=== PATIENT | female | born 1940 | race Caucasian/White ===

== ENCOUNTER 2017-01-09 19:31 | Inpatient (IN) | payer OTHER ==
[~2017-01-09] VITALS: Ht 165.1 cm; Wt 93.4 kg
[~2017-01-09 19:31] MED LIST: ASPI81TA21 PO; CARV3.122 PO; CITA20TA9 PO; FURO20TA PO; HYZ/50125 PO; LPT/20 PO; MELO15TA4 PO; ULT50X PO
[2017-01-09] MEDS ORDERED: ONDANSETRON INJ 2 MG/ML 2 ML VIAL IV STA (19:43)
[2017-01-09] MEDS ORDERED: SODIUM CHLORIDE 0.9% 1000ML 1,000 ML IV STA (19:43)
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
[2017-01-09] MEDS ORDERED: CHOL100010 PO (19:50)
[2017-01-09] MEDS ORDERED: PANT40TA PO (19:50)
[2017-01-09] MEDS ORDERED: LOSA1TAB PO (19:50)
[2017-01-09 19:55] LABS: BASO % 0.7 %; BASO ABS # 0.05 K/uL (0-0.2); COMPLETE YES; EOS % 3.1 %; HEMATOCRIT 37.7 % (37-47); IG% 0.3 %; LYMPH ABS # 3.13 K/uL (1.2-3.4); MEAN CELL VOLUME 83.2 fL (80-100); MEAN CORPUSCULAR HEMOGLOBIN 25.2 pg (25-34); MEAN CORPUSCULAR HGB CONC 30.2 g/dl (32-36); MEAN PLATELET VOLUME 9.4 fL (7.4-10.4); MONO % 10.4 %; NEUT % 44.5 %; PLATELET COUNT 296 K/uL (130-400); RED BLOOD COUNT 4.53 M/uL (4.2-5.4); WHITE BLOOD COUNT 7.63 K/uL (4.8-10.8)
[2017-01-09] MEDS ORDERED: OPTIRAY 320 IV PRN (20:00)
[2017-01-09 20:11] LABS: ISTAT CREATININE 1.1 mg/dl (0.6-1.3); ISTAT HEMOGLOBIN 10.2 g/dl (12.0-16.0)
[2017-01-09 20:14] LABS: ALT/SGPT 31 U/L (12-78); AST/SGOT 31 U/L (15-37); BLOOD UREA NITROGEN 18 mg/dl (7-18); BUN/CREATININE RATIO 14.7 (10-20); CARBON DIOXIDE 29 mmol/L (21-32); CHLORIDE 106 mmol/L (98-107); GLUCOSE 113 mg/dl (70-99); MAGNESIUM 2.2 mg/dl (1.8-2.4); POTASSIUM 4.7 mmol/L (3.5-5.1); SODIUM 141 mmol/L (136-145)
[2017-01-09 20:17] LABS: ALKALINE PHOSPHATASE 71 U/L (45-117)
--- NOTE | 2017-01-09 20:24 | DIAGNOSTIC IMAGING REPORT ---
CHEST ONE VIEW PORTABLE CLINICAL HISTORY: ABDOMINAL PAIN/GI pain COMPARISON STUDY: 03/02/2016 FINDINGS: Mild cardia megaly. Chronic interstitial change left base. Lungs appear clear. IMPRESSION: Moderate cardiomegaly. Otherwise negative study Electronically signed by: Rajinder Aguero M.D. 01/09/2017 8:22 PM Dictated Date/Time: 01/09/2017 8:22 PM
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
[2017-01-09 21:18] LABS: PROTHROMBIN TIME (PATIENT) 11.2 SECONDS (9.0-12.0)
[2017-01-09] MEDS ORDERED: NITROGLYCERIN 0.4 MG SL PER TAB CHARGE SL PRN (23:00)
[2017-01-09] MEDS ORDERED: ONDANSETRON INJ 2 MG/ML 2 ML VIAL IV PRN (23:00)
[2017-01-09] MEDS ORDERED: ALUMINUM/MAGNESIUM/SIMETH (MAALOX MAX) 30 ML UDC PO PRN (23:00)
[2017-01-09] MEDS ORDERED: ACETAMINOPHEN 325 MG TAB PO PRN (23:00)
[2017-01-09] MEDS ORDERED: MAGNESIUM HYDROXIDE SUSP 30 ML UDC PO PRN (23:00)
[2017-01-09] MEDS ORDERED: FUROSEMIDE 20 MG TAB PO PRN (23:00)
[2017-01-09 23:58] VITALS: O2SAT 92
[2017-01-10] VITALS (8 sets, daily range): BP systolic 96–157; BP diastolic 57–79; PULSE 64–86; TEMP 36.3–36.8; O2SAT 90–96; Ht 165.1 cm; Wt 93.4 kg
[2017-01-10 00:42] LABS: ARTERIAL BLD GAS O2 SATURATION 91.1 % (90-95); ARTERIAL BLOOD GAS BASE EXCESS -0.5 mEq/L (-9-1.8); ARTERIAL BLOOD GAS HCO3 25 mmol/L (19-24); ARTERIAL BLOOD GAS PO2 69 mm/Hg (80-95); ARTERIAL BLOOD GAS pH 7.37 (7.35-7.45)
[2017-01-10 00:43] LABS: ALLEN TEST POS (POS); O2 ADMINISTRATION ROOM AIR
[2017-01-10] MEDS ORDERED: IV FLUIDS COMPLETED PRN (00:45)
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
[2017-01-10 07:31] LABS: BASO % 0.6 %; BASO ABS # 0.04 K/uL (0-0.2); COMPLETE YES; EOS % 2.6 %; IG% 0.3 %; LYMPH % 36.2 %; LYMPH ABS # 2.53 K/uL (1.2-3.4); MEAN CELL VOLUME 83.3 fL (80-100); MEAN CORPUSCULAR HEMOGLOBIN 25.5 pg (25-34); MEAN CORPUSCULAR HGB CONC 30.6 g/dl (32-36); MEAN PLATELET VOLUME 8.9 fL (7.4-10.4); MONO % 9.3 %; PLATELET COUNT 237 K/uL (130-400); RED BLOOD COUNT 3.84 M/uL (4.2-5.4); WHITE BLOOD COUNT 6.98 K/uL (4.8-10.8)
[2017-01-10 08:00] LABS: BLOOD UREA NITROGEN 20 mg/dl (7-18); BUN/CREATININE RATIO 18.3 (10-20); CARBON DIOXIDE 28 mmol/L (21-32); CHLORIDE 107 mmol/L (98-107); CHOLESTEROL 132 mg/dl (0-200); GLUCOSE 86 mg/dl (70-99); MAGNESIUM 2.3 mg/dl (1.8-2.4); POTASSIUM 4.5 mmol/L (3.5-5.1); SODIUM 142 mmol/L (136-145)
[2017-01-10 08:04] LABS: CHOLESTEROL/HDL RATIO 4.6; CKMB/CK RATIO 1.6 (0-3.0); HDL CHOLESTEROL 29 mg/dl; LDL CHOLESTEROL CALCULATED 86 mg/dl; TRIGLYCERIDES 84 mg/dl (0-150); VERY LOW DENSITY LIPOPROT CALC 17 mg/dl
[2017-01-10 08:31] LABS: CALCIUM 8.3 mg/dl (8.5-10.1)
[2017-01-10] MEDS: PANTOprazole SOD 40 MG TAB PO SCH (08:46)
[2017-01-10] MEDS: CITALOPRAM 20 MG TAB PO SCH (08:47)
[2017-01-10] MEDS: LOSARTAN POTASSIUM 25 MG TAB PO SCH (08:47)
[2017-01-10] MEDS: MELOXICAM 7.5 MG TAB PO SCH (08:47)
[2017-01-10] MEDS: CARVEDILOL 3.125 MG TAB PO SCH ×2 (08:49→20:50)
[2017-01-10] MEDS: ASPIRIN 81 MG ECTAB PO SCH (08:49)
[2017-01-10] MEDS: CHOLECALCIFEROL 1000 INTER.UNIT TAB PO SCH (08:50)
[2017-01-10] MEDS: ATORVASTATIN 20 MG TAB PO SCH (08:50)
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
--- NOTE | 2017-01-10 12:43 | Progress Note ---
Internal Med Progress Note Date of Service: January 10, 2017. Provider Documentation: SUBJECTIVE: Patient is seen and examined at bedside. States feeling well. Denies chest pain , SOB, dizziness, nausea, abd pain, palpitations. Family at bedside. Admits to skipping meals on occasions. Offers no other complaints. OBJECTIVE: Vital Signs-as noted below Physical Exam: General Appearance:Moderately built and nourished, no apparent distress Head: normocephalic, Atraumatic Eyes: normal inspection, EOMI, PERRL Neck: supple, Trachea midline Respiratory/Chest: Normal breath sounds, CTA Cardiovascular: S1, S2, No murmur Abdomen/GI:Soft, Non tender, Bowel sounds present Extremities/Musculoskelatal:normal inspection, 1+ B/L edema Neurologic/Psych:AAOX3, grossly no focal neurological deficits Skin: normal color, warm Lab data as noted below. ASSESSMENT & PLAN: Syncope: H/O multiple episodes in last 2 yrs Likely situational/Vasovagal in origin Admits to skipping meals but doesn't think it is related EKG/Cardiac enzymes:wnl ECHO: read pending CT head:No acute intracranial abnormality Carotid duplex: No significant change Cardiology consulted No seizure like activity Encouraged to avoid slipping meals, wear ENRICO hose and avoid sudden change in position. Hypoxia: Unclear etiology CT chest: unremarkable. Get Nocturnal pulse oximetry May need PFT's as out patient Hypertension: Continue Coreg, losartan. Hyperlipidemia: Continue statin H/O Diastolic CHF: No signs of decompensation Lasix as needed, Coreg and Cozaar. ECHO:pending Depression: continue Celexa. DVT Px: SCDs Disposition: monitor on tele floor. Code Status: Full code. Vital Signs: Date Time Temp Pulse Resp B/P Pulse Ox O2 Delivery O2 Flow Rate FiO2 01/10/17 11:20 36.6 86 18 103/59 92 Room Air 01/10/17 10:15 Room Air 01/10/17 07:49 36.5 69 16 107/62 91 Room Air 01/10/17 05:42 36.4 69 16 131/70 Room Air 01/10/17 04:00 36.4 69 16 131/70 91 01/10/17 03:05 36.3 69 20 124/79 92 Room Air 01/10/17 00:24 36.7 77 18 157/70 96 Room Air 01/09/17 23:58 74 20 132/68 92 01/09/17 22:36 78 21 94 Room Air 01/09/17 22:30 136/69 01/09/17 22:06 73 15 89 Room Air 01/09/17 22:00 136/78 01/09/17 21:36 75 20 94 Room Air 01/09/17 21:31 131/78 01/09/17 21:06 71 19 91 01/09/17 21:01 75 20 79 01/09/17 21:01 132/69 01/09/17 21:00 125/80 01/09/17 21:00 125/80 01/09/17 20:58 71 124/68 92 Room Air 82 125/80 75 132/69 01/09/17 20:57 124/68 01/09/17 20:57 124/68 01/09/17 20:06 66 19 01/09/17 20:01 65 21 01/09/17 20:01 65 21 01/09/17 19:45 36.7 80 20 121/59 98 Room Air 01/09/17 19:45 69 01/09/17 19:36 121/59 01/09/17 19:36 121/59 Lab Results: Results Past 24 Hours Test 01/09/17 18:45 01/09/17 19:40 01/09/17 19:56 01/09/17 20:50 Range/Units White Blood Count 7.63 4.8-10.8 K/uL Red Blood Count 4.53 4.2-5.4 M/uL Hemoglobin 11.4 12.0-16.0 g/dL Hematocrit 37.7 37-47 % Mean Corpuscular Volume 83.2 80-100 fL Mean Corpuscular Hemoglobin 25.2 25-34 pg Mean Corpuscular Hemoglobin Concent 30.2 32-36 g/dl Platelet Count 296 130-400 K/uL Mean Platelet Volume 9.4 7.4-10.4 fL Neutrophils (%) (Auto) 44.5 % Lymphocytes (%) (Auto) 41.0 % Monocytes (%) (Auto) 10.4 % Eosinophils (%) (Auto) 3.1 % Basophils (%) (Auto) 0.7 % Neutrophils # (Auto) 3.40 1.4-6.5 K/uL Lymphocytes # (Auto) 3.13 1.2-3.4 K/uL Monocytes # (Auto) 0.79 0.11-0.59 K/uL Eosinophils # (Auto) 0.24 0-0.5 K/uL Basophils # (Auto) 0.05 0-0.2 K/uL RDW Standard Deviation 44.3 36.4-46.3 fL RDW Coefficient of Variation 14.6 11.5-14.5 % Immature Granulocyte % (Auto) 0.3 % Immature Granulocyte # (Auto) 0.02 0.00-0.02 K/uL Sodium Level 141 136-145 mmol/L Potassium Level 4.7 3.5-5.1 mmol/L Chloride Level 106 98-107 mmol/L Carbon Dioxide Level 29 21-32 mmol/L Anion Gap 6.0 20.0 16-25 mmol/L Blood Urea Nitrogen 18 7-18 mg/dl Creatinine 1.20 0.60-1.20 mg/dl Est Creatinine Clear Calc Drug Dose 44.5 ml/min Estimated GFR () 50.5 Estimated GFR (Non- 43.6 BUN/Creatinine Ratio 14.7 10-20 Random Glucose 113 70-99 mg/dl Calcium Level 9.0 8.5-10.1 mg/dl Magnesium Level 2.2 1.8-2.4 mg/dl Total Bilirubin 0.3 0.2-1 mg/dl Direct Bilirubin < 0.1 0-0.2 mg/dl Aspartate Amino Transf (AST/SGOT) 31 15-37 U/L Alanine Aminotransferase (ALT/SGPT) 31 12-78 U/L Alkaline Phosphatase 71 45-117 U/L Total Creatine Kinase 41 26-192 U/L Creatine Kinase MB < 0.5 0.5-3.6 ng/ml Creatine Kinase MB Ratio 0-3.0 Troponin I < 0.015 0-0.045 ng/ml Total Protein 7.7 6.4-8.2 gm/dl Albumin 3.6 3.4-5.0 gm/dl Lipase 373 73-393 U/L Bedside Glucose 111 70-90 mg/dl Bedside Hemoglobin 10.2 12.0-16.0 g/dl Bedside Hematocrit 30 37-47 % Bedside Sodium 142 135-144 mEq/L Bedside Potassium 4.5 3.3-5.0 mEq/L Bedside Chloride 107 101-112 mEq/L Bedside Total CO2 21 24-31 mEq/l Bedside Blood Urea Nitrogen 16 7-18 mg/dl Bedside Creatinine 1.1 0.6-1.3 mg/dl Bedside Glucose (other) 118 70-99 mg/dl Bedside Lactic Acid Venous 1.38 0.90-1.70 mmol/L Bedside Ionized Calcium (Pepper) 1.00 1.12-1.32 mmol/l Prothrombin Time 11.2 9.0-12.0 SECONDS Prothromb Time International Ratio 1.0 0.9-1.1 Activated Partial Thromboplast Time 26.0 21.0-31.0 SECONDS Partial Thromboplastin Ratio 1.0 Test 01/10/17 00:34 01/10/17 06:35 01/10/17 06:55 Range/Units Arterial Blood pH 7.37 7.35-7.45 Arterial Blood Partial Pressure CO2 44 35-46 mmHg Arterial Blood Partial Pressure O2 69 80-95 mm/Hg Arterial Blood HCO3 25 19-24 mmol/L Arterial Blood Oxygen Saturation 91.1 90-95 % Arterial Blood Base Excess -0.5 -9-1.8 mEq/L Arterial Blood Gas Delivery ROOM AIR Riki Test POS POS Sodium Level 142 136-145 mmol/L Potassium Level 4.5 3.5-5.1 mmol/L Chloride Level 107 98-107 mmol/L Carbon Dioxide Level 28 21-32 mmol/L Anion Gap 7.0 3-11 mmol/L Blood Urea Nitrogen 20 7-18 mg/dl Creatinine 1.10 0.60-1.20 mg/dl Est Creatinine Clear Calc Drug Dose 48.5 ml/min Estimated GFR () 56.1 Estimated GFR (Non- 48.4 BUN/Creatinine Ratio 18.3 10-20 Random Glucose 86 70-99 mg/dl Calcium Level 8.3 8.5-10.1 mg/dl Magnesium Level 2.3 1.8-2.4 mg/dl Total Creatine Kinase 37 26-192 U/L Creatine Kinase MB 0.6 0.5-3.6 ng/ml Creatine Kinase MB Ratio 1.6 0-3.0 Troponin I < 0.015 0-0.045 ng/ml Triglycerides Level 84 0-150 mg/dl Cholesterol Level 132 0-200 mg/dl HDL Cholesterol 29 mg/dl LDL Cholesterol, Calculated 86 mg/dl VLDL Cholesterol, Calculated 17 mg/dl Cholesterol/HDL Ratio 4.6 White Blood Count 6.98 4.8-10.8 K/uL Red Blood Count 3.84 4.2-5.4 M/uL Hemoglobin 9.8 12.0-16.0 g/dL Hematocrit 32.0 37-47 % Mean Corpuscular Volume 83.3 80-100 fL Mean Corpuscular Hemoglobin 25.5 25-34 pg Mean Corpuscular Hemoglobin Concent 30.6 32-36 g/dl Platelet Count 237 130-400 K/uL Mean Platelet Volume 8.9 7.4-10.4 fL Neutrophils (%) (Auto) 51.0 % Lymphocytes (%) (Auto) 36.2 % Monocytes (%) (Auto) 9.3 % Eosinophils (%) (Auto) 2.6 % Basophils (%) (Auto) 0.6 % Neutrophils # (Auto) 3.56 1.4-6.5 K/uL Lymphocytes # (Auto) 2.53 1.2-3.4 K/uL Monocytes # (Auto) 0.65 0.11-0.59 K/uL Eosinophils # (Auto) 0.18 0-0.5 K/uL Basophils # (Auto) 0.04 0-0.2 K/uL RDW Standard Deviation 44.4 36.4-46.3 fL RDW Coefficient of Variation 14.5 11.5-14.5 % Immature Granulocyte % (Auto) 0.3 % Immature Granulocyte # (Auto) 0.02 0.00-0.02 K/uL Microbiology Results 01/09/17 Blood Culture, Received Pending 01/09/17 Blood Culture, Received Pending
--- NOTE | 2017-01-10 13:29 | ECHOCARDIOGRAM REPORT ---
*NOTICE TO RECEIVING CONSTITUTION PARTY AGENCY This information is strictly Confidential and protected under [place] law. [place] law prohibits you from making any further disclosure of this information unless further disclosure is expressly permitted by the written consent of the person to whom it pertains or is authorized by law. A general authorization for the release of medical or other information is not sufficient for this purpose. Hospital accepts no responsibility if the information is made available to any other person, INCLUDING THE PATIENT. Interpretation Summary * Name: JESSENIA LEON Study Date: 01/10/2017 07:02 AM BP: 131/70 mmHg * Patient Location: [facility] HR: 69 * : 1940 (M/d/yyyy) Gender: Female Height: 65 in * Age: 76 yrs Ethnicity: [place] Weight: 206 lb * Ordering Physician: Sebas Fairchild * Referring Physician: Self, Referred * Performed By: Delvin Arce RCS * * Reason For Study: Syncope * BSA: 2.0 m2 * The study was technically difficult. * Compared to prior study, changes are noted. * -- Conclusions -- * Ejection Fraction = 65-70%. * There is mild concentric left ventricular hypertrophy. * The left ventricular wall motion is normal. * There is mild tricuspid regurgitation. * The estimated systolic PAP is 36mmhg. * Grade I diastolic dysfunction, (abnormal relaxation pattern). Procedure Details * A complete two-dimensional transthoracic echocardiogram was performed (2D, M-mode, Doppler and color flow Doppler). * A contrast injection of Definity was performed to improve assessment of LV function. * Contrast was injected into an intravenous site in the right arm. * One vial of Definity ultrasound contrast was diluted in normal saline to a total volume of 10 ml. A total of '2' ml of solution was administered during imaging. * Lot # [id number] of Definity utilized for procedure. * Expiration date 1APR18. * The attending nurse who injected the contrast agent was Jennifer Lopez RN. Left Ventricle * The left ventricle is normal in size. * There is no thrombus. * There is mild concentric left ventricular hypertrophy. * Left ventricular systolic function is normal. * Ejection Fraction = 65-70%. * The left ventricular wall motion is normal. Right Ventricle * The right ventricular cavity size is normal (basal dimension <4.2 cm in right ventricular apical 4-chamber view). * The right ventricular systolic function is normal as assessed by tricuspid annular plane systolic excursion (TAPSE) (normal >1.5 cm). Atria * The left atrial size is normal. * Right atrial size is normal. * There is no evidence of atrial septal defect, but resolution does not allow assessment for a patent foramen ovale. Mitral Valve * The mitral valve is normal. * There is no mitral valve stenosis. * Significant mitral regurgitation is absent. Tricuspid Valve * The tricuspid valve is normal. * There is no tricuspid stenosis. * There is mild tricuspid regurgitation. * The estimated systolic PAP is 36mmhg. Aortic Valve * The aortic valve is not well visualized. * Aortic valve sclerosis mild, without significant aortic valvular stenosis. * Aortic stenosis is absent. * There is no significant aortic regurgitation. Pulmonic Valve * The pulmonary valve is not well seen, but the Doppler examination is normal without significant regurgitation or stenosis. Great Vessels * The aortic root is normal size. Pericardium/Pleural * There is no pericardial effusion. Great Vessels * The inferior vena cava is mildly dilated. Left Ventricular Diastolic Function * Grade I diastolic dysfunction, (abnormal relaxation pattern). MMode 2D Measurements and Calculations IVSd 1.1 cm IVSs 1.3 cm LVIDd 3.9 cm LVIDs 2.6 cm LVPWd 1.1 cm LVPWs 1.4 cm IVS/LVPW 0.99 FS 33.1 % EDV(Teich) 66.2 ml ESV(Teich) 25.0 ml EF(Teich) 62.3 % EDV(cubed) 59.6 ml ESV(cubed) 17.9 ml EF(cubed) 70.0 % % IVS thick 18.3 % % LVPW thick 23.5 % LV mass(C)d 142.0 grams LV mass(C)dI 70.9 grams/m\S\2 LV mass(C)s 109.2 grams LV mass(C)sI 54.5 grams/m\S\2 CO(Teich) 2.7 l/min CI(Teich) 1.4 l/min/m\S\2 SV(Teich) 41.2 ml SI(Teich) 20.6 ml/m\S\2 CO(cubed) 2.8 l/min CI(cubed) 1.4 l/min/m\S\2 SV(cubed) 41.8 ml SI(cubed) 20.8 ml/m\S\2 Ao root diam 3.3 cm Ao root area 8.3 cm\S\2 ACS 1.4 cm LA dimension 3.8 cm LA/Ao 1.2 LVAd ap4 23.1 cm\S\2 LVLd ap4 7.5 cm EDV(MOD-sp4) 57.0 ml LVAs ap4 12.6 cm\S\2 LVLs ap4 6.3 cm ESV(MOD-sp4) 21.0 ml EF(MOD-sp4) 63.2 % LVAd ap2 22.4 cm\S\2 LVLd ap2 7.5 cm EDV(MOD-sp2) 55.0 ml LVAs ap2 11.0 cm\S\2 LVLs ap2 5.5 cm ESV(MOD-sp2) 18.0 ml EF(MOD-sp2) 67.3 % CO(MOD-sp4) 2.4 l/min CI(MOD-sp4) 1.2 l/min/m\S\2 SV(MOD-sp4) 36.0 ml SI(MOD-sp4) 18.0 ml/m\S\2 CO(MOD-sp2) 2.4 l/min CI(MOD-sp2) 1.2 l/min/m\S\2 SV(MOD-sp2) 37.0 ml SI(MOD-sp2) 18.5 ml/m\S\2 Doppler Measurements and Calculations MV E max jorge l 104.2 cm/sec MV A max jorge l 151.4 cm/sec MV E/A 0.69 MV P1/2t max jorge l 114.0 cm/sec MV P1/2t 118.7 msec MVA(P1/2t) 1.9 cm\S\2 MV dec slope 281.4 cm/sec\S\2 MV dec time 0.41 sec Ao V2 max 143.5 cm/sec Ao max PG 8.2 mmHg Ao max PG (full) 1.1 mmHg LV V1 max PG 7.1 mmHg LV V1 max 133.3 cm/sec PA V2 max 88.7 cm/sec PA max PG 3.2 mmHg TR max jorge l 262.8 cm/sec
[2017-01-11] VITALS: BP 121/76; PULSE 66; TEMP 36.8; O2SAT 95
[2017-01-11 04:43] VITALS: BP 111/51; PULSE 73; TEMP 37; O2SAT 94
[2017-01-11 06:47] LABS: BASO % 0.4 %; BASO ABS # 0.02 K/uL (0-0.2); COMPLETE YES; EOS % 2.6 %; HEMATOCRIT 30.2 % (37-47); IG% 0.2 %; LYMPH ABS # 2.07 K/uL (1.2-3.4); MEAN CELL VOLUME 83.9 fL (80-100); MEAN CORPUSCULAR HEMOGLOBIN 26.1 pg (25-34); MEAN CORPUSCULAR HGB CONC 31.1 g/dl (32-36); MEAN PLATELET VOLUME 9.1 fL (7.4-10.4); NEUT % 47.8 %; PLATELET COUNT 194 K/uL (130-400); WHITE BLOOD COUNT 5.31 K/uL (4.8-10.8)
[2017-01-11 07:21] LABS: BUN/CREATININE RATIO 18.3 (10-20); CALCIUM 8.1 mg/dl (8.5-10.1); CREATININE 1.3 mg/dl (0.60-1.20); MAGNESIUM 2.4 mg/dl (1.8-2.4); POTASSIUM 4.8 mmol/L (3.5-5.1)
[2017-01-11 07:51] VITALS: BP 129/68; PULSE 72; TEMP 37.4; O2SAT 92
[2017-01-11] MEDS: CITALOPRAM 20 MG TAB PO SCH (08:58)
[2017-01-11] MEDS: MELOXICAM 7.5 MG TAB PO SCH (08:58)
[2017-01-11] MEDS: ASPIRIN 81 MG ECTAB PO SCH (08:58)
[2017-01-11] MEDS: CARVEDILOL 3.125 MG TAB PO SCH (08:58)
[2017-01-11] MEDS: PANTOprazole SOD 40 MG TAB PO SCH (08:58)
[2017-01-11] MEDS: LOSARTAN POTASSIUM 25 MG TAB PO SCH (08:58)
[2017-01-11] MEDS: ATORVASTATIN 20 MG TAB PO SCH (08:58)
[2017-01-11] MEDS: CHOLECALCIFEROL 1000 INTER.UNIT TAB PO SCH (10:50)
--- NOTE | 2017-01-11 11:05 | Cardiology Follow-Up ---
Subjective General Date of Service: January 11, 2017. Chief Complaint: syncope Pt evaluation today including: conversation w/ patient, physical exam, chart review, lab review, review of studies, review of inpatient medication list History of Present Illness Patient feeling well this AM. No dizziness, syncope or near syncope. No chest pain or SOB. Currently wearing supplemental O2. Had nocturnal oximetry completed last night demonstrating mild hypoxia. She admits to dyspnea on exertion, but stable. Telemetry reviewed - NSR with rare PAC/PVC. no concerning arrhythmias. Allergies Coded Allergies: No Known Allergies (Verified , 01/09/17) Social History Smoking Status: Unknown if Ever Smoked Hx Tobacco Use In Past Year?: No Hx Alcohol Use - Type And Amou: Yes ( BEER) Hx Substance Use - Type And Am: No Problem List Medical Problems: (1) Abnormal EKG Status: Acute (2) Hypotension Status: Acute (3) Nausea Status: Acute (4) Syncope Status: Acute Review of Systems Respiratory: + dyspnea on exertion, No cough, No dyspnea at rest, No hemoptysis , No shortness of breath, No sputum, No wheezing Cardiac: No PND, No chest pain, No edema, No orthopnea, No palpitations Physical Exam Vital Signs Last Vital Signs Documentation Date Time Temp Pulse Resp B/P Pulse Ox O2 Delivery O2 Flow Rate FiO2 01/11/17 08:00 Room Air 01/11/17 07:51 37.4 72 18 129/68 92 2.0 Physical Exam Constitutional: General Apperance: obese Level of Distress: NAD Psychiatric: Mental Status: active & alert Orientation: to time, to place, to person Head: normocephalic Eyes: Pupils: PERRLA Neck: supple Lungs: Auscultation: no wheezing, no rales/crackles, no rhonchi, decreased breath sounds Cardiovascular: Apical Impulse: not displaced Heart Auscultation: RRR, normal S1, normal S2, no murmurs Musculoskeletal: normal Extremities: no edema Assessment and Plan Assessment and Plan IMPRESSION: 1. Vasovagal Syncope 2. Hypertension 3. Dyslipidemia 4. Tobacco abuse history 5. Chronic dyspnea on exertion, 6. Mild nocturnal hypoxia. RECOMMENDATIONS: Echocardiogram reviewed, normal LV function without significant valvular disease. Will likely need outpatient PFT's and possible sleep med evaluation to r/o AUGUST. Will also schedule dobutamine stress echo given ongoing dyspnea and risk factors for CAD. In terms of vasovagal/orthostatic syncope, not likely arrhythmogenic. She was encouraged to eat frequent meals, stay hydrated, wear ENRICO hose when standing for prolonged periods, and change positions slowly. Case discussed with Dr. Augustine. Cardiology Attending Physician: Patient seen and examined at the bedside. No chest discomfort or dyspnea at rest. Offers no complaints. PE: VSS. Gen: NAD, AAO x3. Neck: Soft left sided carotid bruit. Heart: Reg, Normal S1S2 , no murmur. Lungs: Clear bilateral, no rales, rhonchi, wheeze. Abdomen soft, nontender, nondistended no rebound or guarding. Normal bowel sounds. From is warm and dry no clubbing, cyanosis, or edema. Neurologic exam demonstrates no focal motor deficit. A/P: Agree with above PA-C history, physical exam, assessment and plan. Outpatient stress echocardiogram scheduled. Will sign off. Please call with questions. Harmeet Augustine DO, [facility] Laboratory Results Last 24 Hours Test 01/10/17 14:45 01/11/17 06:39 Total Creatine Kinase 46 U/L Creatine Kinase MB < 0.5 ng/ml Creatine Kinase MB Ratio Troponin I < 0.015 ng/ml White Blood Count 5.31 K/uL Red Blood Count 3.60 M/uL Hemoglobin 9.4 g/dL Hematocrit 30.2 % Mean Corpuscular Volume 83.9 fL Mean Corpuscular Hemoglobin 26.1 pg Mean Corpuscular Hemoglobin Concent 31.1 g/dl Platelet Count 194 K/uL Mean Platelet Volume 9.1 fL Neutrophils (%) (Auto) 47.8 % Lymphocytes (%) (Auto) 39.0 % Monocytes (%) (Auto) 10.0 % Eosinophils (%) (Auto) 2.6 % Basophils (%) (Auto) 0.4 % Neutrophils # (Auto) 2.54 K/uL Lymphocytes # (Auto) 2.07 K/uL Monocytes # (Auto) 0.53 K/uL Eosinophils # (Auto) 0.14 K/uL Basophils # (Auto) 0.02 K/uL RDW Standard Deviation 45.1 fL RDW Coefficient of Variation 14.5 % Immature Granulocyte % (Auto) 0.2 % Immature Granulocyte # (Auto) 0.01 K/uL Sodium Level 138 mmol/L Potassium Level 4.8 mmol/L Chloride Level 105 mmol/L Carbon Dioxide Level 29 mmol/L Anion Gap 4.0 mmol/L Blood Urea Nitrogen 24 mg/dl Creatinine 1.30 mg/dl Est Creatinine Clear Calc Drug Dose 40.9 ml/min Estimated GFR () 45.8 Estimated GFR (Non- 39.5 BUN/Creatinine Ratio 18.3 Random Glucose 93 mg/dl Calcium Level 8.1 mg/dl Magnesium Level 2.4 mg/dl
[2017-01-11 12:01] VITALS: BP 106/61; PULSE 71; TEMP 36.8; O2SAT 92
--- NOTE | 2017-01-11 12:05 | Progress Note ---
Internal Med Progress Note Date of Service: January 11, 2017. Provider Documentation: SUBJECTIVE: Patient is seen and examined at bedside. Doing well. No recurrence of syncope. Denies chest pain, SOB, dizziness, nausea, abd pain, palpitations. Offers no other complaints. OBJECTIVE: Vital Signs-as noted below Physical Exam: General Appearance:Moderately built and nourished, no apparent distress Head: normocephalic, Atraumatic Eyes: normal inspection, EOMI, PERRL Neck: supple, Trachea midline Respiratory/Chest: Normal breath sounds, CTA Cardiovascular: S1, S2, No murmur Abdomen/GI:Soft, Non tender, Bowel sounds present Extremities/Musculoskelatal:normal inspection, 1+ B/L edema Neurologic/Psych:AAOX3, grossly no focal neurological deficits Skin: normal color, warm Lab data as noted below. ASSESSMENT & PLAN: Syncope: H/O multiple episodes in last 2 yrs Likely situational/Vasovagal in origin Admits to skipping meals but doesn't think it is related EKG/Cardiac enzymes:Normal ECHO: as below CT head:No acute intracranial abnormality Carotid duplex: No significant change Appreciate Cardiology input No seizure like activity Encouraged to avoid skipping meals, wear ENRICO hose and avoid sudden change in position. Planned for stress test as outpatient Hypoxia: Unclear etiology DD: Likely AUGUST CT chest: unremarkable. Needs PFT's/Sleep Study as out patient 2 step done: No hypoxia on exertion Nocturnal Oximetry: Needs 2 liters at bedtime Hypertension: Continue Coreg, losartan. Hyperlipidemia: Continue statin H/O Diastolic CHF: No signs of decompensation Lasix as needed, Coreg and Cozaar. ECHO:pending Depression: continue Celexa. DVT Px: SCDs Disposition: Plan to discharge home today Follow up with on at 11:05 AM Follow up with Cardiology on 01/21/17 AT 9:00AM for dobutamine stress test as advised Get Pulmonary Function test and Sleep Study as outpatient as advised Also get EEG as outpatient to rule out any seizure disorder Use Oxygen via nasal cannula 2 liters at bedtime as advised Avoid skipping meals, wear ENRICO hose as advised No Driving until cleared by Primary Care Physician Code Status: Full code. PROCEDURES: ECHO: * Ejection Fraction = 65-70%. * There is mild concentric left ventricular hypertrophy. * The left ventricular wall motion is normal. * There is mild tricuspid regurgitation. * The estimated systolic PAP is 36mmhg. * Grade I diastolic dysfunction, (abnormal relaxation pattern). Vital Signs: Date Time Temp Pulse Resp B/P Pulse Ox O2 Delivery O2 Flow Rate FiO2 01/11/17 12:01 36.8 71 18 106/61 92 01/11/17 08:00 Room Air 01/11/17 07:51 37.4 72 18 129/68 92 Nasal Cannula 2.0 01/11/17 04:43 37.0 73 18 111/51 94 Nasal Cannula 2.0 01/11/17 04:00 Room Air 01/11/17 00:00 Room Air 01/11/17 00:00 36.8 66 18 121/76 95 Room Air 01/10/17 20:00 Room Air 01/10/17 20:00 36.8 64 18 96/57 90 Room Air 01/10/17 16:00 Room Air 01/10/17 15:27 36.8 71 20 117/65 90 Room Air Lab Results: Results Past 24 Hours Test 01/10/17 14:45 01/11/17 06:39 Range/Units Total Creatine Kinase 46 26-192 U/L Creatine Kinase MB < 0.5 0.5-3.6 ng/ml Creatine Kinase MB Ratio 0-3.0 Troponin I < 0.015 0-0.045 ng/ml White Blood Count 5.31 4.8-10.8 K/uL Red Blood Count 3.60 4.2-5.4 M/uL Hemoglobin 9.4 12.0-16.0 g/dL Hematocrit 30.2 37-47 % Mean Corpuscular Volume 83.9 80-100 fL Mean Corpuscular Hemoglobin 26.1 25-34 pg Mean Corpuscular Hemoglobin Concent 31.1 32-36 g/dl Platelet Count 194 130-400 K/uL Mean Platelet Volume 9.1 7.4-10.4 fL Neutrophils (%) (Auto) 47.8 % Lymphocytes (%) (Auto) 39.0 % Monocytes (%) (Auto) 10.0 % Eosinophils (%) (Auto) 2.6 % Basophils (%) (Auto) 0.4 % Neutrophils # (Auto) 2.54 1.4-6.5 K/uL Lymphocytes # (Auto) 2.07 1.2-3.4 K/uL Monocytes # (Auto) 0.53 0.11-0.59 K/uL Eosinophils # (Auto) 0.14 0-0.5 K/uL Basophils # (Auto) 0.02 0-0.2 K/uL RDW Standard Deviation 45.1 36.4-46.3 fL RDW Coefficient of Variation 14.5 11.5-14.5 % Immature Granulocyte % (Auto) 0.2 % Immature Granulocyte # (Auto) 0.01 0.00-0.02 K/uL Sodium Level 138 136-145 mmol/L Potassium Level 4.8 3.5-5.1 mmol/L Chloride Level 105 98-107 mmol/L Carbon Dioxide Level 29 21-32 mmol/L Anion Gap 4.0 3-11 mmol/L Blood Urea Nitrogen 24 7-18 mg/dl Creatinine 1.30 0.60-1.20 mg/dl Est Creatinine Clear Calc Drug Dose 40.9 ml/min Estimated GFR () 45.8 Estimated GFR (Non- 39.5 BUN/Creatinine Ratio 18.3 10-20 Random Glucose 93 70-99 mg/dl Calcium Level 8.1 8.5-10.1 mg/dl Magnesium Level 2.4 1.8-2.4 mg/dl
[2017-01-11] MEDS ORDERED: OXGN (13:03)
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
[2017-01-11 13:30] VITALS: BP 106/61; PULSE 71; TEMP 36.8; O2SAT 92
[2017-01-23] MEDS ORDERED: ISOS60TA2 PO (14:49)
== END 2017-01-11 14:10 | disposition home or self-care (01) | DRG 312 ==
LOC: ENRESERVDT → ENRESERVTM → EDBD 19:31 → C.EDA 19:32 → C.MED 23:04 → EDBEDREQ 23:09
PROVIDERS: ADMIT Internal Medicine; ATTEND Internal Medicine
DX: R55 Syncope and collapse (principal); I50.30 Unspecified diastolic (congestive) heart failure; N18.4 Chronic kidney disease, stage 4 (severe); I13.0 Hypertensive heart and chronic kidney disease with heart failure and stage 1 through stage 4 chronic kidney disease, or unspecified chronic kidney disease; I95.9 Hypotension, unspecified; G47.33 Obstructive sleep apnea (adult) (pediatric); E78.5 Hyperlipidemia, unspecified; F32.9 Major depressive disorder, single episode, unspecified; R94.31 Abnormal electrocardiogram [ECG] [EKG]; R09.02 Hypoxemia; M19.90 Unspecified osteoarthritis, unspecified site; M81.0 Age-related osteoporosis without current pathological fracture; Z79.899 Other long term (current) drug therapy; Z79.1 Long term (current) use of non-steroidal anti-inflammatories (NSAID); Z79.82 Long term (current) use of aspirin; Z87.891 Personal history of nicotine dependence; Z87.19 Personal history of other diseases of the digestive system

== ENCOUNTER → 2017-01-23 | Day surgery (SDC) | payer OTHER ==
[~2017-01-23] VITALS: Ht 170.2 cm; Wt 91.0 kg
[~2017-01-23] MED LIST changes: +ACETAMINOPHEN 325 MG TAB PO PRN; +ATROPINE SULFATE 0.1 MG/ML 5ML SYR IV PRN; +CEPH500C PO; +CHOL100010 PO; +FENTANYL CITRATE INJ 50 MCG/1 ML 2 ML VIAL ONE; +HEPARIN SOD (PORCINE) 1000 UNIT/ML 10 ML VIAL ONE; -HYZ/50125 PO; +ISOS30TA35 PO; +ISOS60TA2 PO; +LOSA1TAB PO; +MIDAZOLAM HCL 1 MG/ML 2ML VIAL ONE; +NITROGLYCERIN/D5W 100MCG/ML 20ML SYR ONE; +NTRGSL/4 UT; +NiCARDipine HCL INJ 2.5 MG/ML 10 ML AMP ONE; +ONDANSETRON INJ 2 MG/ML 2 ML VIAL IV PRN; +OXGN; +PANT40TA PO; +SODIUM CHLORIDE 0.9% 1000ML 250 ML IV PRN; -ULT50X PO
[2017-01-23 09:43] VITALS: BP 161/59; PULSE 59; TEMP 36.4; O2SAT 94; Ht 170.2 cm; Wt 91.0 kg
--- NOTE | 2017-01-23 11:41 | History & Physical Bridge Note ---
H&P Re-Evaluation Bridge Note: I have examined the patient, reviewed the History & Physical and in the interval since the performance of the History & Physical I have noted the following changes of clinical significance: No changes noted
--- NOTE | 2017-01-23 11:41 | Procedure Note ---
Pre-Mod Sedation Assessment General Date of Moderate Sedation: January 23, 2017. Vital Signs: Vital Signs Past 12 Hours Date Time Temp Pulse Resp B/P Pulse Ox O2 Delivery O2 Flow Rate FiO2 01/23/17 09:43 36.4 59 16 161/59 94 Room Air Review Cardiovascular: regular rate, rhythm, no edema, no murmur Abdomen: normal bowel sounds, non tender, soft Lungs: chest non-tender, lungs clear, normal breath sounds Pre-Sedation Airway Assessment Oral Cavity: Dentures Short Thick Neck: No Hx of Sleep Apnea: No Smoking Status: Former Smoker Mallampati Classification: Class III ASA Classification: Class III Procedure Planning Contraindications-for Mod Sed: None Yes Notes The planned sedation has been discussed with the patient and consent obtained. I have identified the patient, determined the appropriateness of sedation and have assessed the patient immediately prior to the procedure. All medicine(s) and interventions are by my order.
--- NOTE | 2017-01-23 12:37 | Cardiac Catheterization ---
Procedure Note Procedure Date January 23, 2017. Pre-Procedure Diagnosis Angina, Positive Stress Test AUC Score 8 Post-Procedure Diagnosis Moderate CAD Procedure(s) Performed Coronary Angiography (Start time 1144, Stop time 1228) Seismograph Supervisor Dr. Augustine Civil Preparedness Coordinator(s) Elbert RAWLS. Sedation monitoring RN:Sanjiv Galvan Estimated Blood Loss 8cc Medication(s) Fentanyl, Heparin, Nicardipine, Nitroglycerin, Versed, Lidocaine 1% Summary of Findings Moderate ostial and proximal Diagonal branch vessel stenosis. 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 ACC Data Cardiac Status Clinical evaluation leading to the procedure CAD Presntation: Positive Stress Test Anginal Classification: CCS II Coronary Anatomy Dominant: Right Left Main (% Stenosis): Normal LAD (% Stenosis): Ostial (0%), Proximal (10%), Mid (30% at origin of diagonal branch vessel), Distal D1 (% Stenosis): Ostial (60%), Proximal (50-60%), Mid (20%), Distal (10%) Circumflex (% Stenosis): Ostial (0%), Proximal (0%), Mid (10%), Distal (10%) OM1 (% Stenosis): Normal (small, 1mm vessel) OM2 (% Stenosis): Ostial (20%), Proximal (20%), Mid (10%), Distal (10%) RCA (% Stenosis): Ostial (0%), Proximal R PDA (% Stenosis): Normal R PL1 (% Stenosis): Normal Diagnostic Status: Elective Closure Device Percutaneous Entry Location: Radial Closure Device: Radial Band Recommendations: Medical therapy and/or Counseling Intraprocedure Events Significant Dissection: No Perforation: No
--- NOTE | 2017-01-23 14:56 | Discharge Instructions ---
Discharge Instructions Procedure Procedure Date: January 23, 2017. Reason for Visit: *FawnAbnormal Dobutamine Stress,Dyspnea. Discharge Discharge Date: January 23, 2017. Discharge Diagnosis: Branch vessel coronary artery disease Last Recorded Wt (Kilograms): 91 Anesthesia Post Anesthesia Instructions: If you have had General Anesthesia or IV Sedation: * Do not drive today. * Resume driving when surgeon permits. * Do not make important decisions or sign legal documents today. * Call surgeon for: 1. Temperature elevations greater than 101 degrees F. 2. Uncontrollable pain. 3. Excessive bleeding. 4. Persistent nausea and vomiting. 5. Medication intolerance (nausea, vomiting or rash). * For nausea and vomiting use only clear liquids such as: tea, soda, bouillon until nausea subsides, then gradually increase diet as tolerated. * If you have any concerns or questions, call your surgeon's office. If physician is unavailable and it is an emergency, call 911 or go to the nearest emergency room. Instructions Activity Recommendations: limitations as noted below Return to School/Work: with the following limitations Recommended Home Diet: resume previous diet Allergies: Coded Allergies: No Known Allergies (Verified , 01/09/17) Provider Instructions ACTIVITY RECOMMENDATIONS: Excess manipulation of the wrist should be avoided for the next 24-48 hours. * No lifting over 2 pounds (approximately a 1/2 gallon of milk) with the utilized arm for 24 hours. * No strenuous activity such as bowling or tennis for 3 days. * Keep the site of the procedure covered with a bandage for 24 hours. *You may shower the day after the procedure. Do not take a tub bath or submerge the puncture site in water for the next 3 days. *Do not operate any motorized equipment for 3 days. SPECIAL CARE INSTRUCTIONS: The site may be slightly bruised and sore following your procedure. Should any of the following occur, contact the Dr. who performed your procedure. 1. Redness/inflammation, swelling, chills, or fever, or colored drainage at procedure site within 3-7 days after your procedure. 2. Coldness, discoloration, ongoing numbness, severe pain, or swelling. Expect mild tingling of hand and tenderness at the puncture site for up to three days. If this persists beyond three days, or other symptoms develop, notify the Dr. who performed your procedure. BLEEDING: If the procedure site on your wrist begins to bleed, do not panic 1. Place 1 or 2 fingers firmly just slightly above the insertion site to stop the bleeding. You may be able to feel your pulse as you hold pressure. 2. Lift your finger after 5 minutes to see if the bleeding has stopped. 3. Once the bleeding has stopped, gently wipe the wrist area clean with a bandage. * If the bleeding from your wrist does not stop after 10 minutes, or if there is a large amount of bleeding or spurting, call 911 (do not drive yourself to the hospital). SKIN IRRITATION: * You may experience some redness and/or swelling in the area where radiation was administered. If any skin irritation occurs, please contact your family physician. FOLLOW UP VISIT: Keep any scheduled doctor appointments. Follow Up Additional Instructions: Start isosorbide monohydrate 30mg daily. Prescription E-prescribed to [facility]. Follow-up with: Dr. Augustine as scheduled. [facility] Recommendations: Call your doctor if: * Temperature above 101 degrees * Pain not relieved by pain medicine ordered * There is increased drainage or redness from any incision * You have any unanswered questions or concerns. Your Doctors Instructions noted above were prepared by provider Arsen Augustine. Patient Signature Section: Patient Instructions Signature Page Sinan Mauricio Patient (or Guardian) Signature/Date: I have read and understand the instructions given to me by my caregivers. Caregiver/RN/Doctor Signature/Date: The above-named patient and/or guardian has received patient instructions on this date. + Original Patient Signature Page (only) stays with chart. Please make copy for patient.
[2017-01-23 15:00] VITALS: BP 138/66; PULSE 60; O2SAT 95
--- NOTE | 2017-01-23 15:14 | Procedure Note ---
Post-Mod Sedation Assessment General Date of Moderate Sedation January 23, 2017. Vital Signs: Vital Signs Past 12 Hours Date Time Temp Pulse Resp B/P Pulse Ox O2 Delivery O2 Flow Rate FiO2 01/23/17 14:30 63 16 145/59 95 Room Air 01/23/17 14:15 61 16 145/59 95 Room Air 01/23/17 14:00 58 16 144/51 97 Room Air 01/23/17 13:45 58 16 135/62 97 Room Air 01/23/17 13:30 59 16 135/58 97 Room Air 01/23/17 13:15 58 16 138/62 93 Room Air 01/23/17 13:00 67 16 144/56 92 Room Air 01/23/17 12:45 61 16 140/59 93 Room Air 01/23/17 12:40 Mask 01/23/17 12:35 Mask 01/23/17 12:30 67 18 157/75 97 Mask 3 01/23/17 09:43 36.4 59 16 161/59 94 Room Air Review - Discharge Criteria Vital Signs Stable: Yes Alert/Oriented/Conversant: Yes Returned to Baseline Mental St: Yes Nausea Absent/Minimal: Yes Pain/Discomfort/Absent/Minimal: Yes Normal/Baseline Respirations: Yes Active Bleeding?: No Pt Received D/C Instructions: Yes Prescriptions Given: Transmitted Specific Proced. D/C Criteria Distal Pulses Present (Cardiac: Yes Groin site assessed-Card Cath: N/A Voided Prior To Discharge: N/A Discharged Patients Adult Escort/Transportation: Yes
== END | disposition home or self-care (01) ==
LOC: C.CATH 08:12
PROVIDERS: ATTEND Internal Medicine Cardiovascular Disease
DX: I25.119 Atherosclerotic heart disease of native coronary artery with unspecified angina pectoris (principal); N18.3 Chronic kidney disease, stage 3 (moderate); I12.9 Hypertensive chronic kidney disease with stage 1 through stage 4 chronic kidney disease, or unspecified chronic kidney disease; I50.30 Unspecified diastolic (congestive) heart failure; Z98.51 Tubal ligation status; Z79.82 Long term (current) use of aspirin; Z90.89 Acquired absence of other organs; Z98.41 Cataract extraction status, right eye; Z98.42 Cataract extraction status, left eye; Z90.710 Acquired absence of both cervix and uterus; Z87.891 Personal history of nicotine dependence; Z82.49 Family history of ischemic heart disease and other diseases of the circulatory system; Z82.0 Family history of epilepsy and other diseases of the nervous system; Z83.3 Family history of diabetes mellitus; Z80.0 Family history of malignant neoplasm of digestive organs

== ENCOUNTER 2017-05-26 18:07 | Emergency (ER) | payer OTHER ==
[~2017-05-26] VITALS: Ht 170.2 cm; Wt 88.0 kg
[~2017-05-26 18:07] MED LIST changes: -ACETAMINOPHEN 325 MG TAB PO PRN; -ATROPINE SULFATE 0.1 MG/ML 5ML SYR IV PRN; -CEPH500C PO; -CHOL100010 PO; -FENTANYL CITRATE INJ 50 MCG/1 ML 2 ML VIAL ONE; -HEPARIN SOD (PORCINE) 1000 UNIT/ML 10 ML VIAL ONE; -ISOS30TA35 PO; -ISOS60TA2 PO; -MIDAZOLAM HCL 1 MG/ML 2ML VIAL ONE; -NITROGLYCERIN/D5W 100MCG/ML 20ML SYR ONE; -NTRGSL/4 UT; -NiCARDipine HCL INJ 2.5 MG/ML 10 ML AMP ONE; -ONDANSETRON INJ 2 MG/ML 2 ML VIAL IV PRN; -PANT40TA PO; -SODIUM CHLORIDE 0.9% 1000ML 250 ML IV PRN
[2017-05-26 18:08] VITALS: TEMP 36.9; Ht 170.2 cm; Wt 88.0 kg
[2017-05-26] MEDS ORDERED: SODIUM CHLORIDE 0.9% 1000ML 1,000 ML IV STA (18:29)
[2017-05-26] MEDS ORDERED: ISOS30TA35 PO (18:40)
[2017-05-26] MEDS ORDERED: NTRGSL/4 UT (18:40)
[2017-05-26 18:56] VITALS: O2SAT 95
[2017-05-26 18:58] LABS: BASO % 0.6 %; BASO ABS # 0.04 K/uL (0-0.2); COMPLETE YES; EOS % 2.9 %; HEMATOCRIT 36.3 % (37-47); IG% 0.2 %; LYMPH % 37.2 %; LYMPH ABS # 2.46 K/uL (1.2-3.4); MEAN CELL VOLUME 84.2 fL (80-100); MEAN CORPUSCULAR HEMOGLOBIN 26.9 pg (25-34); MEAN PLATELET VOLUME 9.1 fL (7.4-10.4); MONO % 11.3 %; NEUT % 47.8 %; PLATELET COUNT 237 K/uL (130-400); RED BLOOD COUNT 4.31 M/uL (4.2-5.4); WHITE BLOOD COUNT 6.61 K/uL (4.8-10.8)
--- NOTE | 2017-05-26 19:02 | EMERGENCY ROOM VISIT NOTE ---
History Report prepared by Anaya: Uriel Garcia Under the Supervision of: Dr. Memo Bae M.D. First contact with patient: 18:13 Chief Complaint: ABDOMINAL PAIN Stated Complaint: CRAMPS IN STOMACH, PASSED OUT History of Present Illness The patient is a 77 year old female with a past medical history of HTN and hyperlipidemia who presents to the ED with a cc of a syncopal episode occurring shortly prior to arrival. Positive abdominal cramping. Episode occurred after defecating. Hx of similar symptoms. Hx of a recent heart catheterization without stent placement. Negative chest pain, SOB, cough, fevers, or chills. Previous DVT, and was previously on blood thinners. No problems with walking. Source of History: patient Onset: Shortly prior to arrival Quality: other (syncope) Timing: other (episode) Associated Symptoms: + abdominal pain (cramping), No fevers, No chills, No cough, No chest pain, No SOB Review of Systems See HPI for pertinent positives and negatives. A total of ten systems were reviewed and were otherwise negative. Past Medical & Surgical Medical Problems: (1) chronic kidney disease stage 4 (2) HTN (hypertension) (3) AUGUST (obstructive sleep apnea) Family History FHx: heart disease Social History Smoking Status: Former Smoker Alcohol Use: none Drug Use: none Marital Status: Housing Status: lives with family Occupation Status: retired Current/Historical Medications Scheduled Aspirin Enteric Coated (Ecotrin Or Generic), 81 MG PO DAILY Atorvastatin (Atorvastatin Calcium), 20 MG PO DAILY Carvedilol (Coreg), 3.125 MG PO BID Cephalexin Monohydrate (Keflex), 500 MG PO BID Citalopram Hydrobromide (Celexa), 20 MG PO DAILY Home O2 Therapy (Oxygen), 2 LITERS NA HS Isosorbide Mononitrate Ext Rel (Imdur Ext Rel), 30 MG PO DAILY Losartan Potassium (Cozaar), 25 MG PO DAILY Meloxicam (Mobic), 15 MG PO DAILY Nitroglycerin (Nitrostat), 0.4 MG UT PRN Scheduled PRN Furosemide (Lasix), 20 MG PO DAILY PRN for FLUID Allergies Coded Allergies: No Known Allergies (Verified , 01/09/17) Physical Exam Vital Signs Date Time Temp Pulse Resp B/P (MAP) Pulse Ox O2 Delivery O2 Flow Rate FiO2 05/26/17 21:07 69 18 90 05/26/17 21:01 121/77 05/26/17 20:50 123/74 05/26/17 20:37 68 22 05/26/17 20:07 65 18 05/26/17 19:48 64 18 130/71 94 Room Air 05/26/17 19:48 130/71 05/26/17 19:37 58 16 05/26/17 19:31 130/58 05/26/17 19:20 59 05/26/17 19:18 103/58 05/26/17 18:56 95 Room Air 05/26/17 18:52 73 18 94/53 95 Room Air 70 85/49 76 65/49 05/26/17 18:08 36.9 80 21 94/59 91 Room Air Physical Exam GENERAL: Awake, alert, well-appearing, NAD HENT: Normocephalic, atraumatic. EYES: Normal conjunctiva. Sclera non-icteric. NECK: Supple. No nuchal rigidity. FROM. RESPIRATORY: CTAB, no rhonchi, wheezing, crackles CARDIAC: RRR, no MRG ABDOMEN: Soft, NTND, BS+ MSK: No chest wall TTP, no LE edema NEURO: GCS 15, CN 2-12 intact, moves all 4s on command. No dysarthria. Good finger to nose. No drift. 5/5 UE and LE strength. SKIN: No rash or jaundice noted. Medical Decision & Procedures ER Provider Diagnostic Interpretation: X-ray: Per my interpretation, radiologist review. CHEST 2 VIEWS ROUTINE FINDINGS: Mild stable cardiomegaly. Mild chronic basilar interstitial change. No focal infiltrate. IMPRESSION: Chronic change. Mild stable cardiomegaly. The above report was generated using voice recognition software. It may contain grammatical, syntax or spelling errors. Electronically signed by: Rajinder Aguero M.D. 05/26/2017 7:15 PM Laboratory Results 05/26/17 18:48 Red Blood Count 4.31, Mean Corpuscular Volume 84.2, Mean Corpuscular Hemoglobin 26.9, Mean Corpuscular Hemoglobin Concent 32.0, Mean Platelet Volume 9.1, Neutrophils (%) (Auto) 47.8, Lymphocytes (%) (Auto) 37.2, Monocytes (%) (Auto) 11.3, Eosinophils (%) (Auto) 2.9, Basophils (%) (Auto) 0.6, Neutrophils # (Auto ) 3.16, Lymphocytes # (Auto) 2.46, Monocytes # (Auto) 0.75, Eosinophils # (Auto ) 0.19, Basophils # (Auto) 0.04 05/26/17 18:48 Test 05/26/17 18:48 05/26/17 19:42 White Blood Count 6.61 K/uL (4.8-10.8) Red Blood Count 4.31 M/uL (4.2-5.4) Hemoglobin 11.6 g/dL (12.0-16.0) Hematocrit 36.3 % (37-47) Mean Corpuscular Volume 84.2 fL (80-100) Mean Corpuscular Hemoglobin 26.9 pg (25-34) Mean Corpuscular Hemoglobin Concent 32.0 g/dl (32-36) Platelet Count 237 K/uL (130-400) Mean Platelet Volume 9.1 fL (7.4-10.4) Neutrophils (%) (Auto) 47.8 % Lymphocytes (%) (Auto) 37.2 % Monocytes (%) (Auto) 11.3 % Eosinophils (%) (Auto) 2.9 % Basophils (%) (Auto) 0.6 % Neutrophils # (Auto) 3.16 K/uL (1.4-6.5) Lymphocytes # (Auto) 2.46 K/uL (1.2-3.4) Monocytes # (Auto) 0.75 K/uL (0.11-0.59) Eosinophils # (Auto) 0.19 K/uL (0-0.5) Basophils # (Auto) 0.04 K/uL (0-0.2) RDW Standard Deviation 48.5 fL (36.4-46.3) RDW Coefficient of Variation 15.7 % (11.5-14.5) Immature Granulocyte % (Auto) 0.2 % Immature Granulocyte # (Auto) 0.01 K/uL (0.00-0.02) Prothrombin Time 11.2 SECONDS (9.0-12.0) Prothromb Time International Ratio 1.0 (0.9-1.1) Activated Partial Thromboplast Time 26.3 SECONDS (21.0-31.0) Partial Thromboplastin Ratio 1.0 Anion Gap 9.0 mmol/L (3-11) Est Creatinine Clear Calc Drug Dose 35.2 ml/min Estimated GFR () 38.3 Estimated GFR (Non- 33.0 BUN/Creatinine Ratio 12.4 (10-20) Calcium Level 9.0 mg/dl (8.5-10.1) Phosphorus Level 4.3 mg/dl (2.5-4.9) Magnesium Level 2.2 mg/dl (1.8-2.4) Total Bilirubin 0.4 mg/dl (0.2-1) Direct Bilirubin 0.2 mg/dl (0-0.2) Aspartate Amino Transf (AST/SGOT) 23 U/L (15-37) Alanine Aminotransferase (ALT/SGPT) 20 U/L (12-78) Alkaline Phosphatase 72 U/L (45-117) Troponin I < 0.015 ng/ml (0-0.045) Total Protein 8.0 gm/dl (6.4-8.2) Albumin 3.7 gm/dl (3.4-5.0) Thyroid Stimulating Hormone (TSH) 2.880 uIu/ml (0.300-4.500) Urine Color DK YELLOW Urine Appearance TURBID (CLEAR) Urine pH 5.0 (4.5-7.5) Urine Specific [place] 1.020 (1.000-1.030) Urine Protein 1+ (NEG) Urine Glucose (UA) NEG (NEG) Urine Ketones TRACE (NEG) Urine Occult Blood 1+ (NEG) Urine Nitrite NEG (NEG) Urine Bilirubin NEG (NEG) Urine Urobilinogen NEG (NEG) Urine Leukocyte Esterase MODERATE (NEG) Urine WBC (Auto) >30 /hpf (0-5) Urine RBC (Auto) 5-10 /hpf (0-4) Urine Hyaline Casts (Auto) 10-30 /lpf (0-5) Urine Epithelial Cells (Auto) >30 /lpf (0-5) Urine Bacteria (Auto) 3+ (NEG) Urine Crystals TALC (NONE PRSENT) Urine Pathogenic Casts /lpf (0) Laboratory results reviewed by me Medications Administered Medications (Trade) Dose Ordered Sig/Felicia Route Start Time Stop Time Status Last Admin Dose Admin Sodium Chloride 1,000 ml @ 999 mls/hr Q1H1M STAT IV 05/26/17 18:29 05/26/17 19:29 DC 05/26/17 18:49 999 MLS/HR Ceftriaxone Sodium (Rocephin Inj) 1 gm NOW STAT IV 05/26/17 20:20 05/26/17 20:21 DC 05/26/17 20:48 1 GM ECG Indication: syncope Rate (beats per minute): 59 Rhythm: sinus bradycardia Findings: Q waves (questionable inferiorly. ), other (P-wave present. Motion artifact noted. No other STS changes or TWI.) Comparison ECG Date: January 11, 2017 Change: no significant change ED Course 1822: The patient was evaluated in room C6. A complete history and physical exam was performed. 2024: I reevaluated the patient. Discussed results and discharge instructions: she verbalized understanding and agreement. The patient is ready for discharge. Medical Decision The patient is a 77 year old female with a past medical history of HTN and hyperlipidemia who presents to the ED with a cc of a syncopal episode occurring shortly prior to arrival. Differential diagnosis: Etiologies such as vasovagal event, infection, hypoglycemia, electrolyte abnormalities, cardiac sources, intracerebral event, toxicologic, neurologic, as well as others were entertained. She was seen and evaluated at the bedside. Patient did complain of a vasovagal syncopal event after a bowel movement. Patient denies any blood in the mouth. Patient denies any chest pains, shortness of breath, numbness, tingling, chills , cough, headache, or lower extremity swelling. Patient is a prior history of DVT but this was many many years ago and has not been on antibiotic regulation quite some time. Patient did have a diagnostic left heart catheter was completed back in December which show that she had some nonobstructive CAD and was not stented at this time. Patient denies any chest pains. CT of the brain and CT of the chest were not pursued as the patient had no headache and patient did not have any chest pain or shortness of breath, and thus less likely to be ICH or PE related syncope. Patient was evaluated patient and fairly normal lab work. Patient's hemoglobin was up from prior. Patient had no elevation white count. Patient's LFTs are unremarkable. Patient had an unchanged EKG and negative troponin. Given her recent nonobstructive cardiac cath was likely to be ACS especially given her lack of symptomatic complaints. Patient UA concerning for cystitis. Patient was given antibiotics. Patient did have a second blood pressure of that I believe was Baroness patient had no compensatory tachycardia. Patient's EKG was read as junctional rhythm however there is a for amount of artifact and there did appear to be P waves present prior to the QRS. Patient was given strict follow-up, discharge, return precautions. Patient agreed with plan of care patient was safely discharged home. Medication Reconcilliation Current Medication List: was personally reviewed by me Blood Pressure Screening Patient's blood pressure: Normal blood pressure Blood pressure disposition: Did not require urgent referral Impression Primary Impression: Vasovagal syncope Additional Impression: Cystitis Scribe Attestation The scribe's documentation has been prepared under my direction and personally reviewed by me in its entirety. I confirm that the note above accurately reflects all work, treatment, procedures, and medical decision making performed by me. Departure Information Dispostion Home / Self-Care Prescriptions Cephalexin Monohydrate (Keflex) 500 Mg Cap 500 MG PO BID for 7 Days, #14 CAP Prov: Memo Bae M.D. 05/26/17 Referrals Morris Nugent M.D. (PCP) Patient Instructions Cystitis Interstitial, ED Syncope Vasovagal, My [facility] Additional Instructions Please return to the emergency department if you have worsening or recurrent symptoms not amenable to at-home treatment. Please call for a follow-up appointment with her primary care physician. Please take your medications as prescribed. If you have other concerns and/or complaints please feel free to also call your primary care physician's office or return the ED for further evaluation, management, and treatment. You have been examined and treated today on an emergency basis only. This is not a substitute for, or an effort to provide, complete comprehensive medical care. It is impossible to recognize and treat all injuries or illnesses in a single emergency department visit. It is therefore important that you follow up closely with [facility]. Call as soon as possible for an appointment. Thank you for your time and consideration. I look forward to speaking with you again soon. Please don't hesitate to call us if you have any questions. Problem Qualifiers
[2017-05-26 19:08] LABS: PROTHROMBIN TIME (PATIENT) 11.2 SECONDS (9.0-12.0)
[2017-05-26 19:14] LABS: ALT/SGPT 20 U/L (12-78); BLOOD UREA NITROGEN 19 mg/dl (7-18); BUN/CREATININE RATIO 12.4 (10-20); CARBON DIOXIDE 24 mmol/L (21-32); CHLORIDE 106 mmol/L (98-107); GLUCOSE 87 mg/dl (70-99); MAGNESIUM 2.2 mg/dl (1.8-2.4); POTASSIUM 4.6 mmol/L (3.5-5.1); SODIUM 139 mmol/L (136-145)
--- NOTE | 2017-05-26 19:16 | DIAGNOSTIC IMAGING REPORT ---
CHEST 2 VIEWS ROUTINE CLINICAL HISTORY: EVALUATE ALTERED MENTAL STATUS/WEAKNESS dyspnea COMPARISON STUDY: 01/09/2017 FINDINGS: Mild stable cardiomegaly. Mild chronic basilar interstitial change. No focal infiltrate. IMPRESSION: Chronic change. Mild stable cardiomegaly. The above report was generated using voice recognition software. It may contain grammatical, syntax or spelling errors. Electronically signed by: Rajinder Aguero M.D. 05/26/2017 7:15 PM Dictated Date/Time: 05/26/2017 7:14 PM
[2017-05-26 19:25] LABS: ALKALINE PHOSPHATASE 72 U/L (45-117); AST/SGOT 23 U/L (15-37); PHOSPHORUS 4.3 mg/dl (2.5-4.9)
[2017-05-26 19:57] LABS: URINE APPEARANCE TURBID (CLEAR); URINE COLOR DK YELLOW; URINE EPITHELIAL CELL AUTO >30 /lpf (0-5); URINE NITRITE NEG (NEG); UROBILINOGEN NEG (NEG)
[2017-05-26 19:59] LABS: MANUAL MICROSCOPIC REQUIRED? NO; REVIEW REQ? YES; URINE BILIRUBIN NEG (NEG)
[2017-05-26] MEDS ORDERED: CEFTRIAXONE SOD INJ 1 GM ADDVIAL IV STA (20:20)
[2017-05-26] MEDS ORDERED: CEPH500C PO (20:26)
[2017-05-26 21:01] VITALS: BP 121/77
[2017-05-26 21:07] VITALS: PULSE 69; O2SAT 90
== END 2017-05-26 21:28 | disposition home or self-care (01) ==
LOC: C.EDB 18:07 → C.EDC 21:28
DX: R55 Syncope and collapse (principal); N30.90 Cystitis, unspecified without hematuria; I12.9 Hypertensive chronic kidney disease with stage 1 through stage 4 chronic kidney disease, or unspecified chronic kidney disease; E78.5 Hyperlipidemia, unspecified; Z86.718 Personal history of other venous thrombosis and embolism; G47.33 Obstructive sleep apnea (adult) (pediatric); N18.4 Chronic kidney disease, stage 4 (severe); Z82.49 Family history of ischemic heart disease and other diseases of the circulatory system; Z87.891 Personal history of nicotine dependence; Z79.82 Long term (current) use of aspirin; Z79.899 Other long term (current) drug therapy

== ENCOUNTER 2018-03-27 15:46 | Observation (INO) | payer OTHER ==
[~2018-03-27] VITALS: Ht 170.2 cm; Wt 93.6 kg
[~2018-03-27 15:46] MED LIST changes: +ASPI-319 PO; -ASPI81TA21 PO; +ISOS30TA35 PO; -LPT/20 PO; +LPT20 PO; +MELO-84 PO; -MELO15TA4 PO; +NTRGSL/4 UT
[2018-03-27] MEDS ORDERED: SODIUM CHLORIDE 0.9% 1000ML 1,000 ML IV STA (16:59)
[2018-03-27] MEDS ORDERED: ASPIRIN 81 MG CHEW PO STA (17:06)
[2018-03-27 17:12] LABS: BASO % 0.4 %; BASO ABS # 0.03 K/uL (0-0.2); EOS % 0.2 %; EOS ABS # 0.02 K/uL (0-0.5); HEMATOCRIT 38.3 % (37-47); IG# 0.02 K/uL (0.00-0.02); LYMPH % 28.8 %; LYMPH ABS # 2.35 K/uL (1.2-3.4); MEAN CELL VOLUME 81.8 fL (80-100); MEAN CORPUSCULAR HEMOGLOBIN 25.6 pg (25-34); MEAN CORPUSCULAR HGB CONC 31.3 g/dl (32-36); MEAN PLATELET VOLUME 9.3 fL (7.4-10.4); MONO % 8.2 %; MONO ABS # 0.67 K/uL (0.11-0.59); NEUT % 62.2 %; NEUT ABS # 5.07 K/uL (1.4-6.5); PLATELET COUNT 223 K/uL (130-400); RED CELL DISTRIBUTION WIDTH CV 15.2 % (11.5-14.5); RED CELL DISTRIBUTION WIDTH SD 45.5 fL (36.4-46.3); WHITE BLOOD COUNT 8.16 K/uL (4.8-10.8)
--- NOTE | 2018-03-27 17:22 | DIAGNOSTIC IMAGING REPORT ---
CHEST ONE VIEW PORTABLE CLINICAL HISTORY: Atypical chest pain COMPARISON STUDY: 05/26/2017 FINDINGS: The heart remains mildly enlarged. There is no evidence of failure. There is chronic basilar interstitial thickening. There are no pleural effusions.[ IMPRESSION: Chronic basilar interstitial thickening. Mild cardiomegaly. No acute findings. Electronically signed by: Les Hutson M.D. 03/27/2018 5:20 PM Dictated Date/Time: 03/27/2018 5:20 PM
[2018-03-27 17:27] LABS: PTT PATIENT 27.7 SECONDS (21.0-31.0)
[2018-03-27 17:40] LABS: ALBUMIN 3.9 gm/dl (3.4-5.0); BLOOD UREA NITROGEN 16 mg/dl (7-18); CALCIUM 8.9 mg/dl (8.5-10.1); CARBON DIOXIDE 26 mmol/L (21-32); CREATININE 1.05 mg/dl (0.60-1.20); GLUCOSE 89 mg/dl (70-99); POTASSIUM 4.2 mmol/L (3.5-5.1); SODIUM 139 mmol/L (136-145); TOTAL PROTEIN 8.5 gm/dl (6.4-8.2)
[2018-03-27 17:41] LABS: ALKALINE PHOSPHATASE 77 U/L (45-117); ALT/SGPT 27 U/L (12-78); AST/SGOT 31 U/L (15-37); CKMB < 1.0 ng/ml (0.5-3.6)
[2018-03-27] MEDS ORDERED: NITROGLYCERIN 0.4 MG SL PER TAB CHARGE SL PRN (18:45)
[2018-03-27] MEDS ORDERED: ACETAMINOPHEN 325 MG TAB PO PRN (18:45)
[2018-03-27] MEDS ORDERED: ALUMINUM/MAGNESIUM/SIMETH (MAALOX MAX) 30 ML UDC PO PRN (18:45)
[2018-03-27] MEDS ORDERED: ONDANSETRON INJ 2 MG/ML 2 ML VIAL IV PRN (18:45)
[2018-03-27] MEDS ORDERED: MAGNESIUM HYDROXIDE SUSP 30 ML UDC PO PRN (18:45)
[2018-03-27 19:45] VITALS: BP 167/87; PULSE 71; TEMP 36.7; O2SAT 94; Ht 170.2 cm; Wt 93.6 kg
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
--- NOTE | 2018-03-27 20:09 | EMERGENCY ROOM VISIT NOTE ---
History Report prepared by Anaya: Maureen Vallecillo Under the Supervision of: Dr. Jase Louie M.D. First contact with patient: 16:58 Chief Complaint: ILLNESS Stated Complaint: SICK History of Present Illness The patient is a 77 year old female who presents to the Emergency Room with complaints of intermittent chest discomfort beginning around noon today. The patient states that she was referred from [facility] for an abnormal ECG today. The patient states that she was doing laundry and felt tightness in her chest which lasted for about a couple of minutes. The patient reports that she sat down and rested which helped to alleviate her pain. The patient reports that she was also nauseous and had a slight headache when she had the tightness. She reports that she has also noticed slight swelling in her legs recently. She states that she had the same chest tightness two weeks ago but states that she did not go to the doctor's. The patient states that when she worked at [employer] that she had an episode of unresponsiveness. She states that she was told that this was a heart attack. The patient states that she was told that she has a blockage in her heart but that a stent was unable to be placed. She states that she takes 81 mg of Aspirin daily and that she took it today. Pt denies LOC, fevers, chills, diaphoresis, jaw pain, visual changes, neck pain, breathing difficulties, vomiting, abdominal pain, back pain , numbness, weakness, or other complaints. Source of History: patient Onset: around noon today Position: chest Quality: other (discomfort, tightness) Timing: intermittent Modifying Factors (Relieving): rest (sitting down ) Associated Symptoms: + headache, + nausea, No vomiting Review of Systems See HPI for pertinent positives and negatives. A total of ten systems were reviewed and were otherwise negative. Past Medical & Surgical Medical Problems: (1) Chest pain (2) chronic kidney disease stage 4 (3) HTN (hypertension) (4) AUGUST (obstructive sleep apnea) Family History FHx: heart disease Social History Smoking Status: Former Smoker Alcohol Use: none Drug Use: none Marital Status: Housing Status: lives with family Occupation Status: retired Current/Historical Medications Scheduled Aspirin Enteric Coated (Ecotrin Or Generic), 81 MG PO DAILY Atorvastatin (Lipitor), 20 MG PO DAILY Carvedilol (Coreg), 3.125 MG PO BID Isosorbide Mononitrate Ext Rel (Imdur Ext Rel), 30 MG PO DAILY Losartan Potassium (Cozaar), 25 MG PO DAILY Meloxicam (Mobic), 15 MG PO DAILY Nitroglycerin (Nitrostat), 0.4 MG UT PRN Scheduled PRN Furosemide (Lasix), 20 MG PO DAILY PRN for FLUID Allergies Coded Allergies: No Known Allergies (Verified , 01/09/17) Physical Exam Vital Signs Date Time Temp Pulse Resp B/P (MAP) Pulse Ox O2 Delivery O2 Flow Rate FiO2 03/27/18 19:10 77 20 178/102 92 Room Air 03/27/18 18:30 76 175/95 94 Room Air 03/27/18 17:28 87 20 163/99 93 Room Air 03/27/18 17:13 92 Room Air 03/27/18 17:13 Room Air 03/27/18 17:05 77 03/27/18 16:35 36.7 96 18 207/91 91 Room Air Physical Exam GENERAL: Awake, alert, well-appearing, in no distress HENT: Normocephalic, atraumatic. Oropharynx unremarkable. EYES: Normal conjunctiva. Sclera non-icteric. NECK: Supple. No nuchal rigidity. FROM. No masses. RESPIRATORY: Clear to auscultation. No wheezes. No rales. Normal respiratory effort. CARDIAC: Normal rate. Normal rhythm. No murmurs. No rubs. Extremities warm and well perfused. Pulses equal. No JVD. GI: Soft, non-distended. No tenderness to palpation. No rebound or guarding. No masses. RECTAL: Deferred. MUSCULOSKELETAL: Atraumatic. Chest examination reveals no tenderness. The back is symmetrical on inspection without obvious abnormality. There is no CVA tenderness to palpation. No joint edema. LOWER EXTREMITIES: Calves are equal size bilaterally and non-tender. Trace edema. No discoloration. NEURO: Normal sensorium. No sensory or motor deficits noted. SKIN: No rash or jaundice noted. Medical Decision & Procedures ER Provider Diagnostic Interpretation: Radiology results as stated below per my review and radiologist interpretation: CHEST ONE VIEW PORTABLE CLINICAL HISTORY: Atypical chest pain COMPARISON STUDY: 05/26/2017 FINDINGS: The heart remains mildly enlarged. There is no evidence of failure. There is chronic basilar interstitial thickening. There are no pleural effusions.[ IMPRESSION: Chronic basilar interstitial thickening. Mild cardiomegaly. No acute findings. Electronically signed by: Les Hutson M.D. 03/27/2018 5:20 PM Dictated Date/Time: 03/27/2018 5:20 PM Laboratory Results 03/27/18 16:50 Red Blood Count 4.68, Mean Corpuscular Volume 81.8, Mean Corpuscular Hemoglobin 25.6, Mean Corpuscular Hemoglobin Concent 31.3, Mean Platelet Volume 9.3, Neutrophils (%) (Auto) 62.2, Lymphocytes (%) (Auto) 28.8, Monocytes (%) (Auto) 8.2, Eosinophils (%) (Auto) 0.2, Basophils (%) (Auto) 0.4, Neutrophils # (Auto) 5.07, Lymphocytes # (Auto) 2.35, Monocytes # (Auto) 0.67, Eosinophils # (Auto) 0.02, Basophils # (Auto) 0.03 03/27/18 16:50 Test 03/27/18 16:50 03/27/18 19:00 White Blood Count 8.16 K/uL (4.8-10.8) Red Blood Count 4.68 M/uL (4.2-5.4) Hemoglobin 12.0 g/dL (12.0-16.0) Hematocrit 38.3 % (37-47) Mean Corpuscular Volume 81.8 fL (80-100) Mean Corpuscular Hemoglobin 25.6 pg (25-34) Mean Corpuscular Hemoglobin Concent 31.3 g/dl (32-36) Platelet Count 223 K/uL (130-400) Mean Platelet Volume 9.3 fL (7.4-10.4) Neutrophils (%) (Auto) 62.2 % Lymphocytes (%) (Auto) 28.8 % Monocytes (%) (Auto) 8.2 % Eosinophils (%) (Auto) 0.2 % Basophils (%) (Auto) 0.4 % Neutrophils # (Auto) 5.07 K/uL (1.4-6.5) Lymphocytes # (Auto) 2.35 K/uL (1.2-3.4) Monocytes # (Auto) 0.67 K/uL (0.11-0.59) Eosinophils # (Auto) 0.02 K/uL (0-0.5) Basophils # (Auto) 0.03 K/uL (0-0.2) RDW Standard Deviation 45.5 fL (36.4-46.3) RDW Coefficient of Variation 15.2 % (11.5-14.5) Immature Granulocyte % (Auto) 0.2 % Immature Granulocyte # (Auto) 0.02 K/uL (0.00-0.02) Prothrombin Time 11.0 SECONDS (9.0-12.0) Prothromb Time International Ratio 1.0 (0.9-1.1) Activated Partial Thromboplast Time 27.7 SECONDS (21.0-31.0) Partial Thromboplastin Ratio 1.1 Anion Gap 7.0 mmol/L (3-11) Est Creatinine Clear Calc Drug Dose 47.8 ml/min Estimated GFR () 58.9 Estimated GFR (Non- 50.8 BUN/Creatinine Ratio 15.0 (10-20) Calcium Level 8.9 mg/dl (8.5-10.1) Magnesium Level 2.2 mg/dl (1.8-2.4) Total Bilirubin 0.6 mg/dl (0.2-1) Direct Bilirubin 0.2 mg/dl (0-0.2) Aspartate Amino Transf (AST/SGOT) 31 U/L (15-37) Alanine Aminotransferase (ALT/SGPT) 27 U/L (12-78) Alkaline Phosphatase 77 U/L (45-117) Total Creatine Kinase 72 U/L (26-192) Creatine Kinase MB < 1.0 ng/ml (0.5-3.6) Creatine Kinase MB Ratio (0-3.0) Troponin I < 0.015 ng/ml (0-0.045) Total Protein 8.5 gm/dl (6.4-8.2) Albumin 3.9 gm/dl (3.4-5.0) Thyroid Stimulating Hormone (TSH) 1.850 uIu/ml (0.300-4.500) Urine Color YELLOW Urine Appearance CLEAR (CLEAR) Urine pH 7.5 (4.5-7.5) Urine Specific [place] 1.007 (1.000-1.030) Urine Protein NEG (NEG) Urine Glucose (UA) NEG (NEG) Urine Ketones NEG (NEG) Urine Occult Blood NEG (NEG) Urine Nitrite NEG (NEG) Urine Bilirubin NEG (NEG) Urine Urobilinogen NEG (NEG) Urine Leukocyte Esterase NEG (NEG) Laboratory results reviewed by me Medications Administered Medications (Trade) Dose Ordered Sig/Felicia Route Start Time Stop Time Status Last Admin Dose Admin Sodium Chloride 1,000 ml @ 125 mls/hr Q8H STAT IV 03/27/18 16:59 03/28/18 00:58 03/27/18 17:28 125 MLS/HR Aspirin (Aspirin Chew) 243 mg NOW STAT PO 03/27/18 17:06 03/27/18 17:07 DC 03/27/18 17:26 243 MG ECG Per My Interpretation Indication: chest pain Rate (beats per minute): 76 Rhythm: normal sinus Findings: Q waves (Inferior), other (no ST elevation, no ST depression, no PACs , no PVCs) ED Course 1659: Ordered Sodium Chloride 1000 ml @ 125 mls/hr IV. 1703: The patient was evaluated in room B2. A complete history and physical exam was performed. 170: Ordered Aspirin 243 mg PO. 182: Upon reexamination, the patient was resting. I discussed the test results and treatment plan with her. The patient will be evaluated for further management by Dr. Xie. Medical Decision Prior records/ancillary studies reviewed. Triage Nursing notes reviewed and agree them. Additional history obtained from the family. The patient's history was concerning for chest pain. Differential diagnosis: Etiologies such as cardiac ischemia, aortic dissection, pulmonary embolism, pneumonia, pneumothorax, musculoskeletal, infections, pericarditis, myocarditis , esophageal rupture, gastrointestinal, as well as others were entertained. Physical examination: As above. ER treatment provided: Oral aspirin Normal saline hydration On reassessment the patient felt well. Diagnostic interpretation by me: The electrocardiogram was negative for pathologic change. The labs revealed an unremarkable CBC and chemistry panel. LFTs and lipase negative. Troponin negative. Imaging studies: Chest x-ray as above The patient has had 2 episodes of exertional chest pain over last 2 weeks. Currently she is pain-free. Further management in the hospital is necessary. Consultation: A consultation was placed with the hospitalist. The case was discussed and diagnostics were reviewed. The patient was evaluated in the ER for further treatment. Medication Reconcilliation Current Medication List: was personally reviewed by me Blood Pressure Screening Patient's blood pressure: Elevated blood pressure will be monitored by hospitalist Consults Time Called: 1814 Consulting Physician: Dr. Jaden Chong Returned Call: [phone] Discussed the patient's case. The patient will be evaluated for further treatment and disposition. Impression Primary Impression: Substernal chest pain Scribe Attestation The scribe's documentation has been prepared under my direction and personally reviewed by me in its entirety. I confirm that the note above accurately reflects all work, treatment, procedures, and medical decision making performed by me. Departure Information Dispostion Being Evaluated By Hospitalist Referrals Morris Nugent M.D. (PCP) Patient Instructions My [facility]
[2018-03-27] MEDS: SODIUM CHLORIDE 0.9% 1000ML 1,000 ML IV SCH (20:19)
[2018-03-27] MEDS: CARVEDILOL 3.125 MG TAB PO SCH (21:57)
[2018-03-27] MEDS: ENOXAPARIN 40 MG/0.4 ML SYR SC SCH (21:57)
[2018-03-27 22:57] VITALS: BP 129/73; PULSE 70; TEMP 36.4; O2SAT 91
[2018-03-28 04:18] VITALS: BP 131/61; PULSE 64; TEMP 36.6; O2SAT 92
[2018-03-28 07:00] LABS: HEMATOCRIT 32.4 % (37-47); HEMOGLOBIN 10.2 g/dL (12.0-16.0); MEAN CELL VOLUME 82.4 fL (80-100); MEAN CORPUSCULAR HGB CONC 31.5 g/dl (32-36); MEAN PLATELET VOLUME 9.7 fL (7.4-10.4); PLATELET COUNT 182 K/uL (130-400); RED CELL DISTRIBUTION WIDTH CV 15.4 % (11.5-14.5); RED CELL DISTRIBUTION WIDTH SD 46.3 fL (36.4-46.3); WHITE BLOOD COUNT 6.31 K/uL (4.8-10.8)
[2018-03-28 07:36] LABS: BLOOD UREA NITROGEN 18 mg/dl (7-18); CALCIUM 8.2 mg/dl (8.5-10.1); CARBON DIOXIDE 27 mmol/L (21-32); CHOLESTEROL 82 mg/dl (0-200); CREATININE 0.97 mg/dl (0.60-1.20); GLUCOSE 100 mg/dl (70-99); LDL CHOLESTEROL CALCULATED 33 mg/dl; POTASSIUM 4.2 mmol/L (3.5-5.1); SODIUM 141 mmol/L (136-145)
[2018-03-28] MEDS ORDERED: PERFLUTREN LIPID MICROSPHERE (DEFINITY) IV ONE (07:37)
[2018-03-28] MEDS: MELOXICAM 7.5 MG TAB PO SCH (07:59)
[2018-03-28] MEDS: ISOSORBIDE MONONITRATE 30 MG TABCR PO SCH (08:00)
[2018-03-28] MEDS: ATORVASTATIN 20 MG TAB PO SCH (08:00)
[2018-03-28] MEDS: ASPIRIN 81 MG ECTAB PO SCH (08:00)
[2018-03-28] MEDS: LOSARTAN POTASSIUM 25 MG TAB PO SCH (08:01)
[2018-03-28] MEDS: CARVEDILOL 3.125 MG TAB PO SCH ×2 (08:01→20:38)
[2018-03-28] MEDS: SODIUM CHLORIDE 0.9% 1000ML 1,000 ML IV SCH ×2 (08:57→20:38)
[2018-03-28] MEDS: IV FLUIDS COMPLETED PRN ×2 (08:58→22:38)
--- NOTE | 2018-03-28 10:39 | Cardiology Consultation ---
Cardiology Consultation Date of Consultation: Mar 28, 2018 Requesting Physician: Rojas Attending Blanket Winder Helper: Kasia (Rajinder Kaur PA-C) History of Present Illness Ms. Mauricio is a 77 year old female who is being seen at the request of Dr. Xie. Reason for consultation is chest pain. The patient notes generally not feeling well. She describes feeling anxious and jittery, especially when alone, that is associated iwth nausea without vomiting and very mild upper chest discomfort. She describes the discomfort in the upper chest as "just as if I had to throw up or something was stuck in there." Notes having had these symptoms in the past, typically occurring when alone and resolving when spending time with her daughter who lives nearby. She notes feeling more anxious and depressed since September. She notes not getting a raise in her Social Security. She is worried about paying her bills, especially being able to heat her trailer this winter. She has significant stressors related to her children, not talking to her daughter who lives in [facility] as well as a son who lives in [place]. Blood pressure on presentation to the emergency room was 207/91. Throughout her hospital course thus far her blood pressure is significantly improved with the most recent reading of 131/61. At the time of my evaluation the patient describes feeling wonderful. She notes resolution of the presenting chest discomfort around 830 last night, without treatment administered other than aspirin. EKG showed no acute change. Troponin negative 3. Resting echocardiogram is pending. She denies exertional chest pain. No recent change in exercise tolerance. No new or worsening shortness of breath. No lower extremity peripheral edema. No near syncope or true syncope. (Rajinder Kaur PA-C) Past Medical/Surgical History Problem List: Branch vessel coronary artery disease Carotid artery disease followed by PCP History of vasovagal syncope Hypertension Dyslipidemia Impaired fasting glucose Stage III chronic kidney disease Obstructive sleep apnea History of retinal hemorrhage Diverticulitis Vitamin D deficiency Osteoporosis Osteoarthritis Glaucoma Tubal ligation Total hysterectomy Appendectomy Cataract extraction (Rajinder Kaur PA-C) Family History FHx: heart disease Mother at 68 with Parkinson disease. Father had CAD, passing at age 88 with an [place] or CVA. Brother with liver cancer. Daughter at the age of 19, non-Hodgkin's lymphoma (Natasha,Rajinder, PA-C) FHx: heart disease (Rafael Pedroza DO) Social History Former smoker, quit in 1991 after smoking up to 3 packs per day 30 years. Social alcohol. No illegal drug use. Retired [employer], her side. 8 children. Lives alone 6.5 years. One grandson lives next door. 2 daughters both live in [place]. One daughter in [place]. One son in [place]. Smoking Status: Former Smoker Drug Use: none Marital Status: Housing Status: lives alone Occupation: retired (Rajinder Kaur PA-C) Review Of Systems Complete review of system is otherwise as stated above, negative, noncontributory. (Rajinder Kaur PA-C) Allergies Coded Allergies: No Known Allergies (Verified , 01/09/17) Medications Reported Home Medications Medications Dose Route/Sig Max Daily Dose Days Date Category Nitrostat (Nitroglycerin) 0.4 Mg Tab 0.4 Mg UT PRN 05/26/17 Reported Imdur Ext Rel (Isosorbide Mononitrate) 30 Mg Tabcr 30 Mg PO DAILY 05/26/17 Reported Cozaar (Losartan Potassium) 25 Mg Tab 25 Mg PO DAILY 01/09/17 Reported Lipitor (Atorvastatin Calcium) 20 Mg Tab 20 Mg PO DAILY 05/03/15 Reported Mobic (Meloxicam) 15 Mg Tab 15 Mg PO DAILY 03/09/14 Reported Coreg (Carvedilol) 3.125 Mg Tab 3.125 Mg PO BID 03/09/14 Reported Lasix (Furosemide) 20 Mg Tab 20 Mg PO DAILY PRN 03/09/14 Reported Ecotrin Or Generic (Aspirin) 81 Mg Tab 81 Mg PO DAILY 02/28/12 Reported (Rajinder Kaur PA-C) Physical Exam Vital Signs (Last 8hrs): Last 8 Hrs Date Time Temp Pulse Resp B/P (MAP) Pulse Ox O2 Delivery O2 Flow Rate FiO2 03/28/18 04:18 36.6 64 19 131/61 (84) 92 Room Air General: Alert and Oriented x3. NAD. Elevated BMI HEENT: Normocephalic Atraumatic. PER, EOMI, conjunctiva and sclera clear Neck: Bilateral carotid bruits. No JVD. No HJD. Respiratory: Breath sounds clear to auscultation bilaterally. No w/r/r. Cardiovascular: RRR. Soft systolic murmur. No diastolic murmur. No rub. Chest: No reproducible chest pain noted. Abdomen: +BS. Soft. Nontender. Extremities: No edema. No clubbing. No cyanosis. Distal pulses 2/4 bilaterally. Neuro: No focal deficits. Psychiatric: Flat affect. (Rajinder Kaur PA-C) Data Last 24 Hours Test 03/27/18 16:50 03/27/18 19:00 03/28/18 00:28 03/28/18 06:38 White Blood Count 8.16 K/uL 6.31 K/uL Red Blood Count 4.68 M/uL 3.93 M/uL Hemoglobin 12.0 g/dL 10.2 g/dL Hematocrit 38.3 % 32.4 % Mean Corpuscular Volume 81.8 fL 82.4 fL Mean Corpuscular Hemoglobin 25.6 pg 26.0 pg Mean Corpuscular Hemoglobin Concent 31.3 g/dl 31.5 g/dl Platelet Count 223 K/uL 182 K/uL Mean Platelet Volume 9.3 fL 9.7 fL Neutrophils (%) (Auto) 62.2 % Lymphocytes (%) (Auto) 28.8 % Monocytes (%) (Auto) 8.2 % Eosinophils (%) (Auto) 0.2 % Basophils (%) (Auto) 0.4 % Neutrophils # (Auto) 5.07 K/uL Lymphocytes # (Auto) 2.35 K/uL Monocytes # (Auto) 0.67 K/uL Eosinophils # (Auto) 0.02 K/uL Basophils # (Auto) 0.03 K/uL RDW Standard Deviation 45.5 fL 46.3 fL RDW Coefficient of Variation 15.2 % 15.4 % Immature Granulocyte % (Auto) 0.2 % Immature Granulocyte # (Auto) 0.02 K/uL Prothrombin Time 11.0 SECONDS Prothromb Time International Ratio 1.0 Activated Partial Thromboplast Time 27.7 SECONDS Partial Thromboplastin Ratio 1.1 Sodium Level 139 mmol/L 141 mmol/L Potassium Level 4.2 mmol/L 4.2 mmol/L Chloride Level 106 mmol/L 108 mmol/L Carbon Dioxide Level 26 mmol/L 27 mmol/L Anion Gap 7.0 mmol/L 6.0 mmol/L Blood Urea Nitrogen 16 mg/dl 18 mg/dl Creatinine 1.05 mg/dl 0.97 mg/dl Est Creatinine Clear Calc Drug Dose 47.8 ml/min 56.0 ml/min Estimated GFR () 58.9 64.8 Estimated GFR (Non- 50.8 55.9 BUN/Creatinine Ratio 15.0 18.8 Random Glucose 89 mg/dl 100 mg/dl Calcium Level 8.9 mg/dl 8.2 mg/dl Magnesium Level 2.2 mg/dl 2.1 mg/dl Total Bilirubin 0.6 mg/dl Direct Bilirubin 0.2 mg/dl Aspartate Amino Transf (AST/SGOT) 31 U/L Alanine Aminotransferase (ALT/SGPT) 27 U/L Alkaline Phosphatase 77 U/L Total Creatine Kinase 72 U/L Creatine Kinase MB < 1.0 ng/ml Creatine Kinase MB Ratio Troponin I < 0.015 ng/ml < 0.015 ng/ml < 0.015 ng/ml Total Protein 8.5 gm/dl Albumin 3.9 gm/dl Thyroid Stimulating Hormone (TSH) 1.850 uIu/ml Urine Color YELLOW Urine Appearance CLEAR Urine pH 7.5 Urine Specific [place] 1.007 Urine Protein NEG Urine Glucose (UA) NEG Urine Ketones NEG Urine Occult Blood NEG Urine Nitrite NEG Urine Bilirubin NEG Urine Urobilinogen NEG Urine Leukocyte Esterase NEG Triglycerides Level 87 mg/dl Cholesterol Level 82 mg/dl HDL Cholesterol 32 mg/dl LDL Cholesterol, Calculated 33 mg/dl VLDL Cholesterol, Calculated 17 mg/dl Cholesterol/HDL Ratio 2.6 January 23, 2017 diagnostic cardiac catheterization performed by Dr. Augustine at [facility] demonstrated right dominant coronary anatomy. RCA was without disease. Left main was described as normal. The LAD was felt to have a 10% proximal stenosis, 30% mid vessel stenosis at the origin of a diagonal branch vessel. The first diagonal branch was noted to have a 60% ostial stenosis, 50-60% proximal stenosis, 20% mid vessel stenosis, 10% distal stenosis. The distal left circumflex was felt to have mild irregularities, 10% vessel stenosis and 10% distal vessel stenosis. The first obtuse marginal branch was noted to be normal, 1 mm vessel. The second obtuse marginal branch was noted to have a 20% ostial stenosis, 20% proximal stenosis, 10% mid vessel stenosis, 10% distal vessel stenosis. Chest x-ray on presentation revealed chronic basilar interstitial thickening with mild cardiomegaly. No acute findings observed per radiological interpretation. EKG on presentation revealed normal sinus rhythm at 76 bpm. Minimal voltage criteria for LVH noted. 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 EKG this morning reveals normal sinus rhythm at 68 bpm with a first-degree AV block. In the old infarct pattern. Continuous telemetry monitoring reveals sinus ranging in 70s-80s. No significant atrial ventricular arrhythmias. No significant bradycardia or pauses. Resting echocardiogram has been obtained, pending interpretation. (Rajinder Kaur PA-C) Assessment & Plan Atypical chest pain suggestive of anxiety and hypertensive urgency. EKGs without acute change. Troponin negative 3. Telemetry benign. Resting echo pending. Blood pressures have significantly improved from presentation RECOMMENDATIONS: Continue beta-mayito, aspirin, statin, long-acting nitroglycerin, and losartan. Increase losartan dosing if additional blood pressure control as needed Await resting echo interpretation and evaluation by Dr. Pedroza. Recommend outpatient cardiology follow-up in [place] Follow-up with PCP regarding anxiety and depression. (Rajinder Kaur PA-C) CARDIOLOGY ATTENDING ADDENDUM: The patient was seen and personally examined. Agree with Rajinder Kaur PA-C's findings and plans as documented above. Cardiac markers are negative. Agree with follow-up with PCP. No additional cardiac testing indicated. (Rafael Pedroza, DO)
[2018-03-28 13:16] VITALS: BP 144/66; PULSE 67; TEMP 36.7; O2SAT 91
[2018-03-28 16:56] VITALS: BP 151/74; PULSE 61; TEMP 36.5; O2SAT 92
--- NOTE | 2018-03-28 18:31 | Progress Note ---
Internal Med Progress Note Date of Service: Mar 28, 2018. Provider Documentation: SUBJECTIVE: No complaint of chest pain or shortness of breath No chest heaviness, no cough no fever chills OBJECTIVE: Vital Signs-as noted below Exam: General-no sign of distress, pleasant Eyes-sclera nonicteric, pupils bilateral equal reactive to light extraocular muscle intact ENT-moist oral mucosa Neck-neck supple, no thyromegaly, no carotid bruit, trachea midline, no JVD Lungs-clear to auscultate no wheeze or rales Heart-regular S1-S2 no murmur gallop Abdomen- soft nontender Extremities-no lower extremity edema, no rash or deformity Neuro-no focal neurological deficit Lab data as noted below. ASSESSMENT & PLAN: CHEST PAIN/ATYPICAL FOR ANGINA Symptom has resolved Atypical for ACS, Serial cardiac markers negative Echo: Normal wall motion HISTORY OF CORONARY ARTERY DISEASE STATUS POST PTCA No acute coronary event/no complaint of active chest pain Appreciate input from cardiology Patient will continue with outpatient cardiac meds of beta mayito/statin/ aspirin HYPERTENSION Blood pressure stable, continue Cozaar CODE STATUS: Full code DVT PROPHYLAXIS Subcu Lovenox DISPOSITION Discharge home Medicine follow-up with Dr. Morris Nugent at [facility] Vital Signs: Lab Results:
--- NOTE | 2018-03-28 18:33 | Discharge Instructions ---
Discharge Instructions Date of Service Mar 28, 2018. Admission Reason for Admission: Chest Pain Discharge Discharge Diagnosis / Problem: CHEST PAIN, ATYPICAL FOR ANGINA, NO ACUTE CORONARY EVENT Discharge Goals Goal(s): Decrease discomfort, Improve function, Increase independence, Improve disease control, Diagnostic testing, Therapeutic intervention Activity Recommendations Activity Limitations: resume your previous activity . Instructions / Follow-Up Instructions / Follow-Up Hospital follow-up with:04/02/2018 1:[address] Scarlet Robertson MD Internal Medicine [facility] Dr [place]anes is out of office next week Will need referral for out patient cardiac stress test Current Hospital Diet Patient's current hospital diet: AHA Diet (Heart Healthy) Discharge Diet Recommended Diet: AHA Diet (Heart Healthy) Pending Studies Studies pending at discharge: no Laboratory Results Lipid Panel Test 03/28/18 06:38 Range/Units Triglycerides Level 87 0-150 mg/dl Cholesterol Level 82 0-200 mg/dl HDL Cholesterol 32 mg/dl Cholesterol/HDL Ratio 2.6 LDL Cholesterol, Calculated 33 mg/dl Medical Emergencies . Who to Call and When: Medical Emergencies: If at any time you feel your situation is an emergency, please call 911 immediately. . Non-Emergent Contact Non-Emergency issues call your: Primary Care Provider . . "Provider Documentation" section prepared by Cassidy Mcmahon. .
[2018-03-28 19:35] VITALS: BP 149/61; PULSE 63; TEMP 36.8; O2SAT 90
[2018-03-28] MEDS: ENOXAPARIN 40 MG/0.4 ML SYR SC SCH (20:38)
[2018-03-28] MEDS ORDERED: NURSING VERBAL MED ORDER ONE (21:15)
[2018-03-29 00:02] VITALS: BP 161/88; PULSE 64; TEMP 37; O2SAT 91
[2018-03-29 04:30] VITALS: BP 148/82; PULSE 69; TEMP 36.9; O2SAT 91
[2018-03-29] MEDS: ATORVASTATIN 20 MG TAB PO SCH (07:34)
[2018-03-29] MEDS: CARVEDILOL 3.125 MG TAB PO SCH (07:34)
[2018-03-29] MEDS: MELOXICAM 7.5 MG TAB PO SCH (07:34)
[2018-03-29] MEDS: ASPIRIN 81 MG ECTAB PO SCH (07:35)
[2018-03-29] MEDS: LOSARTAN POTASSIUM 25 MG TAB PO SCH (07:35)
[2018-03-29] MEDS: ISOSORBIDE MONONITRATE 30 MG TABCR PO SCH (07:35)
[2018-03-29 07:36] VITALS: BP 166/80; PULSE 65; TEMP 36.7; O2SAT 92
[2018-03-29] MEDS ORDERED: LOSA1TAB PO (10:34)
[2018-03-29] MEDS ORDERED: LOSARTAN POTASSIUM 25 MG TAB PO ONE (11:00)
[2018-03-29 11:03] VITALS: BP 166/80; PULSE 65; TEMP 36.7; O2SAT 92
[2018-03-29 11:59] VITALS: BP 159/79; PULSE 60
--- NOTE | 2018-03-29 12:01 | Discharge Summary ---
Discharge Summary Date of Service Mar 29, 2018. Discharge Summary Admission Date: Mar 27, 2018 at 18:49 Discharge Date: Mar 29, 2018 Discharge Disposition: Home Principal Diagnosis: CHEST PAIN, ATYPICAL FOR ANGINA, NO ACUTE CORONARY EVENT Consultations: [facility] cardiology Medication Reconciliation New Medications: Losartan Potassium (Cozaar) 25 Mg Tab 2 TAB PO DAILY for 30 Days, #60 TAB 5 Refills Continued Medications: Aspirin Enteric Coated (Ecotrin Or Generic) 81 Mg Tab 81 MG PO DAILY, TAB Atorvastatin (Lipitor) 20 Mg Tab 20 MG PO DAILY, #30 Carvedilol (Coreg) 3.125 Mg Tab 3.125 MG PO BID, TAB Furosemide (Lasix) 20 Mg Tab 20 MG PO DAILY PRN for FLUID, TAB Isosorbide Mononitrate Ext Rel (Imdur Ext Rel) 30 Mg Tabcr 30 MG PO DAILY Meloxicam (Mobic) 15 Mg Tab 15 MG PO DAILY PRN for Pain, TAB Nitroglycerin (Nitrostat) 0.4 Mg Tab 0.4 MG UT PRN Discontinued Medications: Losartan Potassium (Cozaar) 25 Mg Tab 25 MG PO DAILY, TAB Admission Information HPI (per Admitting provider): This is a 77 year old female with a past medical history of CKD stage 3, HTN, nonobstructive CAD - presents with chest pain. States that she lives alone and this evening felt some chest pressure in the center of the chest. No radiation to the chest pain. When probed further she states she felt anxious at the same time. She lives alone and states she does not like living alone. She feels better when she is with family. Denies any chest pain currently. No shortness of breath/palpitations. Denies nausea/vomiting. 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 II-XII nml as tested, no motor/sensory deficits, alert , oriented x 3, + depressed affect Skin: normal color, warm/dry, no rash Lymphatic: no adenopathy Hospital Course No complaint of chest pain No dyspnea on exertion Heart pressure was elevated this morning Denies of any headache or chest heaviness or shortness of breath BP meds adjusted, Cozaar dose increased to 50 mg/given extra 25 mg in today Blood pressure improved to 150s Able to be discharged home today Exam: General-no sign of distress, pleasant Eyes-sclera nonicteric, pupils bilateral equal reactive to light extraocular muscle intact ENT-moist oral mucosa Neck-neck supple, no thyromegaly, no carotid bruit, trachea midline, no JVD Lungs-clear to auscultate no wheeze or rales Heart-regular S1-S2 no murmur gallop Abdomen- soft nontender Extremities-no lower extremity edema, no rash or deformity Neuro-no focal neurological deficit ASSESSMENT AND PLAN CHEST PAIN/ATYPICAL FOR ANGINA No evidence of acute coronary syndrome Serial cardiac markers negative Echo: Normal wall motion Evaluated by cardiology Stable to be discharged home, no further cardiac procedure or imaging needed HISTORY OF CORONARY ARTERY DISEASE STATUS POST PTCA No acute coronary event Appreciate input from cardiology Patient will continue with outpatient cardiac meds of beta mayito/statin/ aspirin HYPERTENSION Blood pressure remains elevated Cozaar dose in increased to 50 mg daily (was on 25 mg daily) Prescription and sent to pharmacy She will be followed up with her family doctor in outpatient for monitoring of blood pressure and adjustments of meds if needed CODE STATUS: Full code DVT PROPHYLAXIS Subcu heparin DISPOSITION Stable to be discharged home today Medicine follow-up with Dr. Morris Nugent at [facility] Discharge Instructions DI: Medical v5 Discharge Instructions Date of Service Mar 28, 2018. Admission Reason for Admission: Chest Pain Discharge Discharge Diagnosis / Problem: CHEST PAIN, ATYPICAL FOR ANGINA, NO ACUTE CORONARY EVENT Discharge Goals Goal(s): Decrease discomfort, Improve function, Increase independence, Improve disease control, Diagnostic testing, Therapeutic intervention Activity Recommendations Activity Limitations: resume your previous activity . Instructions / Follow-Up Instructions / Follow-Up Hospital follow-up with:04/02/2018 1:[address] Scarlet Robertson MD Internal Medicine [facility] Dr Llanes is out of office next week Will need referral for out patient cardiac stress test Current Hospital Diet Patient's current hospital diet: AHA Diet (Heart Healthy) Discharge Diet Recommended Diet: AHA Diet (Heart Healthy) Pending Studies Studies pending at discharge: no Laboratory Results Lipid Panel Test 03/28/18 06:38 Range/Units Triglycerides Level 87 0-150 mg/dl Cholesterol Level 82 0-200 mg/dl HDL Cholesterol 32 mg/dl Cholesterol/HDL Ratio 2.6 LDL Cholesterol, Calculated 33 mg/dl Medical Emergencies . Who to Call and When: Medical Emergencies: If at any time you feel your situation is an emergency, please call 911 immediately. . Non-Emergent Contact Non-Emergency issues call your: Primary Care Provider . . "Provider Documentation" section prepared by Cassidy Mcmahon. .
--- NOTE | 2018-04-01 15:09 | ECHOCARDIOGRAM REPORT ---
*NOTICE TO RECEIVING CONSTITUTION PARTY AGENCY This information is strictly Confidential and protected under [place] law. [place] law prohibits you from making any further disclosure of this information unless further disclosure is expressly permitted by the written consent of the person to whom it pertains or is authorized by law. A general authorization for the release of medical or other information is not sufficient for this purpose. Hospital accepts no responsibility if the information is made available to any other person, INCLUDING THE PATIENT. Interpretation Summary * Name: JESSENIA LEON Study Date: 03/28/2018 06:49 AM BP: 131/61 mmHg * Patient Location: .[facility]\S\[id number]\2 HR: 64 * : 1940 (M/d/yyyy) Gender: Female Height: 62 in * Age: 77 yrs Ethnicity: [place] Weight: 204 lb * Ordering Physician: Elvira Xie * Referring Physician: Self, Referred * Performed By: Jessica Rodriguez RDCS * * Reason For Study: Chest Pain * BSA: 1.9 m2 * -- Conclusions -- * The left ventricle is normal in size. * Ejection Fraction = 60-65%. * The left ventricular wall motion is normal. * The right ventricular systolic function is normal. * The left atrium is moderately dilated. * Right atrial size is normal. * Mild aortic regurgitation. Procedure Details * A complete two-dimensional transthoracic echocardiogram was performed (2D, M-mode, Doppler and color flow Doppler). * The study was technically difficult. * The study was technically difficult, but visualization was adequate with the administration of Definity ultrasound contrast. * There were technical limitations due to patient'sbody habitus * A contrast injection of Definity was performed to improve assessment of LV function. * Contrast was injected into an intravenous site in the left arm. * One vial of Definity ultrasound contrast was diluted in normal saline to a total volume of 10 ml. A total of '2' ml of solution was administered during imaging. * Lot # [id number] of Definity utilized for procedure. * Expiration date 1JUL19. * The attending nurse who injected the contrast agent was Rosa Colindres RN. Left Ventricle * The left ventricle is normal in size. * There is normal left ventricular wall thickness. * Ejection Fraction = 60-65%. * Left ventricular systolic function is normal. * The left ventricular wall motion is normal. Right Ventricle * The right ventricle is normal size. * The right ventricular systolic function is normal. Atria * The left atrium is moderately dilated. * Right atrial size is normal. * No ASD detected; PFO is not assessed. Mitral Valve * There is moderate mitral annular calcification. * Significant mitral regurgitation is absent. Tricuspid Valve * The tricuspid valve anatomy is normal. * Significant tricuspid regurgitation is absent. Aortic Valve * The aortic valve is not well visualized. * No hemodynamically significant valvular aortic stenosis. * Mild aortic regurgitation. Pulmonic Valve * The pulmonic valve is not well visualized. MMode 2D Measurements and Calculations IVSd 1.2 cm IVSs 1.6 cm LVIDd 5.0 cm LVIDs 3.2 cm LVPWd 1.3 cm LVPWs 1.6 cm IVS/LVPW 0.98 FS 34.7 % EDV(Teich) 117.0 ml ESV(Teich) 42.5 ml EF(Teich) 63.7 % EDV(cubed) 123.3 ml ESV(cubed) 34.3 ml EF(cubed) 72.2 % % IVS thick 26.9 % % LVPW thick 23.0 % LV mass(C)d 248.5 grams LV mass(C)dI 128.9 grams/m\S\2 LV mass(C)s 189.7 grams LV mass(C)sI 98.4 grams/m\S\2 SV(Teich) 74.5 ml SI(Teich) 38.7 ml/m\S\2 SV(cubed) 89.0 ml SI(cubed) 46.2 ml/m\S\2 Ao root diam 2.7 cm Ao root area 5.7 cm\S\2 LA dimension 3.3 cm LA/Ao 1.2 LVAd ap4 29.6 cm\S\2 LVLd ap4 8.5 cm EDV(MOD-sp4) 86.1 ml EDV(sp4-el) 86.8 ml LVAs ap4 15.8 cm\S\2 LVLs ap4 7.6 cm ESV(MOD-sp4) 27.5 ml ESV(sp4-el) 28.0 ml EF(MOD-sp4) 68.0 % EF(sp4-el) 67.7 % LVAd ap2 27.8 cm\S\2 LVLd ap2 8.3 cm EDV(MOD-sp2) 79.8 ml EDV(sp2-el) 79.1 ml LVAs ap2 15.2 cm\S\2 LVLs ap2 7.4 cm ESV(MOD-sp2) 26.6 ml ESV(sp2-el) 26.4 ml EF(MOD-sp2) 66.7 % EF(sp2-el) 66.6 % LVLd %diff -2.70 % EDV(MOD-bp) 84.2 ml LVLs %diff -2.63 % ESV(MOD-bp) 27.5 ml EF(MOD-bp) 67.3 % SV(MOD-sp4) 58.6 ml SI(MOD-sp4) 30.4 ml/m\S\2 SV(MOD-sp2) 53.2 ml SI(MOD-sp2) 27.6 ml/m\S\2 SV(MOD-bp) 56.7 ml SI(MOD-bp) 29.4 ml/m\S\2 SV(sp4-el) 58.8 ml SI(sp4-el) 30.5 ml/m\S\2 SV(sp2-el) 52.7 ml SI(sp2-el) 27.4 ml/m\S\2 Doppler Measurements and Calculations MV E max jorge l 117.4 cm/sec MV A max jorge l 155.7 cm/sec MV E/A 0.75 MV dec time 0.36 sec Ao V2 max 156.9 cm/sec Ao max PG 9.8 mmHg Ao max PG (full) 2.9 mmHg AI max jorge l 455.4 cm/sec AI max PG 83.0 mmHg AI dec slope 242.0 cm/sec\S\2 AI P1/2t 551.0 msec LV V1 max PG 6.9 mmHg LV V1 max 131.4 cm/sec PA V2 max 88.0 cm/sec PA max PG 3.1 mmHg TR max jorge l 232.4 cm/sec
== END 2018-03-29 12:14 | disposition home or self-care (01) ==
LOC: C.EDB 15:47 → C.MED 18:49 → ENRESERV 19:03
PROVIDERS: ADMIT Family Medicine; ATTEND Hospitalist
DX: R07.9 Chest pain, unspecified (principal); N18.3 Chronic kidney disease, stage 3 (moderate); I12.9 Hypertensive chronic kidney disease with stage 1 through stage 4 chronic kidney disease, or unspecified chronic kidney disease; E78.5 Hyperlipidemia, unspecified; I25.2 Old myocardial infarction; Z79.82 Long term (current) use of aspirin; Z79.899 Other long term (current) drug therapy; I25.10 Atherosclerotic heart disease of native coronary artery without angina pectoris; Z82.49 Family history of ischemic heart disease and other diseases of the circulatory system; Z87.891 Personal history of nicotine dependence